=== PATIENT | male | born 1955 | race Caucasian/White ===

== ENCOUNTER → 2018-06-14 08:51 | Outpatient (BNVA) | payer MEDICARE, SELFPAY | PROVIDERS: PCP Family Medicine; Referring Provider Family Medicine; Visit Provider Surgery | DX: L98.9 Disorder of the skin and subcutaneous tissue, unspecified (principal) | CPT/HCPCS: 99213 ==

== ENCOUNTER 2018-06-29 08:45 | Day surgery (SDC) | payer MEDICARE, SELFPAY ==
[2018-06-29 08:50] VITALS: BP 135/68; PULSE 84; RESP 16; TEMP 36.3; O2SAT 94
--- NOTE | 2018-06-29 10:43 | SKI_PTH ---
PATIENT: Anthony Ho LOC: [facility] U#:[id number] AGE/SX: 63/M ROOM: RE06/29/[address]: Jozef Gold DO : 1955 BED: DIS: 06/29/2018 SPEC #: [id number] RECD: 06/29/18 12:48 STATUS: GHULAM REQ #: [id number] ANDREI: 06/29/18 10:[address]: Jozef Gold DEPT: Surgical Specimen RECD BY: Dorothy Lincoln ENTERED: 06/29/18 12:49 SP TYPE: RENETTA BUSTILLO DR: Hillary Taylor MD, DC Tissues: 1 - SKIN BIOPSY(SHAVE/PUNCH) Procedures: SKIN LEVEL 4 Comments: [id number]
[2018-06-29] MEDS: Bupivacaine 0.5% Pres-Free 30 ML VIAL IJ (10:48)
--- NOTE | 2018-06-29 11:18 | PDOC.DSDIS_ITS ---
Discharge Plan Disposition Patient Disposition: HOME Condition: Good Discharge Details Reason For Visit: EXCISION LESION Attending Provider: Jozef Gold Primary Care Provider: Hillary Taylor Home Meds and New Rx's Prescriptions: Continue cyanocobalamin (vitamin B-12) [Vitamin B-12] 1,000 MCG tablet 2.5 tab PO DAILY RF: 0 ascorbic acid (vitamin C) [Vitamin C] 500 MG tablet 2 tab PO DAILY RF: 0 cholecalciferol (vitamin D3) 5,000 UNIT capsule 5,000 unit PO DAILY RF: 0 aspirin [Aspir-81] 81 MG tablet,delayed release (DR/EC) 81 mg PO DAILY Qty: 1 RF: 0 vitamin B comp with C no.4 [Super B Complex + C] 150 MG tablet 150 mg PO DAILY Qty: 1 RF: 0 ublgnxvw-gzr-SE-lycopen-lutein [Centrum Silver Men] 1 EACH tablet 1 ea PO DAILY Qty: 1 RF: 0 baclofen 10 MG tablet 5 - 10 mg PO TID PRN for spasm Qty: 21 RF: 0 venlafaxine 75 MG capsule,extended release 24hr 75 mg PO DAILY Qty: 90 RF: 12 Discharge Instructions Instructions: Care For Your Stitches (DC) Referrals: Jozef Gold DO [ [facility] STAFF PHYSICIAN] - 07/07/18 9:15 am (Follow up for removal of stitches after excision of neoplasm of the nose) Activity:: Activity as Tolerated Diet:: As Tolerated Discharge Orders Discharge Orders: Discharge Order (Routine); Ordered 06/29/18 Ordered By: Jozef Gold DS: Diagnosis Discharge Diagnosis (1) Neoplasm of uncertain behavior of skin of face: Start date: 06/29/18 Start time: 11:17 Status: Acute Asessment and Plan: Recommended removal of neoplasm under local
--- NOTE | 2018-06-29 14:31 | ROE_ITS ---
Date of service: 06/29/18 Time of Service: 10:30 Operative Note DATE OF PROCEDURE: 06/29/18 POST-OP DIAGNOSIS: same PROCEDURE: Excision neoplasm of the nose SURGEON: Jozef Gold ANESTHESIA: local (1% lidocaine and 0.5% Marcaine plain) ESTIMATED BLOOD LOSS: 5 PATHOLOGY: other (Neoplasm of the nose single tail left, double tail inferior) COMPLICATIONS: None Patient was transported to: same day Patient's condition: stable Indications: 63 y/o male presents today for evaluation of a nasal skin lesion, that has been present for ~1.5 months that has not changed in that time frame. -Discussed the procedure of having the lesion excised in the OR secondary to the location and risk of bleeding due to the face being highly vascular. Discussed potential complications to include bleeding and sedation/medication risks. Recommended the patient has a ride to/from his appointment. Questions were answered to patient's satisfaction. No guarantees were implied or given. Findings: Neoplasm of the nose removed with surgical ellipse measuring 1.2 cm x 0.4 cm Procedure Description: The patient was brought to the operating room, and positioned supine. An appropriate timeout was taken reviewing the patient's identification, allergies , medications, site, and equipment. His nose was then prepped with Betadine, and the nose was draped in standard sterile fashion. An ellipse was made around the neoplasm on the nose, this measured 1.2 cm in the long axis and 0.4 cm in the short axis. Local was infiltrated in and around the lesion, encompassing the entire ellipse. A 15 blade scalpel was then used to excise the ellipse down to the subcutaneous tissue. The base was then sharply divided. Hemostasis obtained with cautery. The resulting defect was then closed using 4-0 Prolene suture with simple interrupted stitches. The specimen was marked with single tail silk stitch marking the left, and double tail silk stitch marking inferior margin. There were no complications during the case, and the patient tolerated the procedure well. He was returned to the day surgery recovery area in good condition. All counts reported as correct x2.
== END 2018-06-29 11:30 | disposition home or self-care (01) ==
PROVIDERS: PCP Family Medicine; Visit Provider Surgery
PROC: 0HB1XZZ Excision of Face Skin, External Approach (ICD-10-PCS; CPT 11642; principal; 2018-06-29 10:30)
DX: C44.311 Basal cell carcinoma of skin of nose (principal)
CPT/HCPCS: 11642; 88305

== ENCOUNTER → 2018-07-07 09:00 | Outpatient (BNVA) | payer MEDICARE, SELFPAY | PROVIDERS: PCP Family Medicine; Referring Provider Family Medicine; Visit Provider Surgery | DX: Z48.89 Encounter for other specified surgical aftercare (principal); C44.91 Basal cell carcinoma of skin, unspecified; I10 Essential (primary) hypertension; E11.9 Type 2 diabetes mellitus without complications ==

== ENCOUNTER → 2018-08-02 08:47 | Outpatient (BNVA) | payer MEDICARE, SELFPAY | PROVIDERS: PCP Family Medicine; Referring Provider Family Medicine; Visit Provider Surgery | DX: C44.311 Basal cell carcinoma of skin of nose (principal); E11.9 Type 2 diabetes mellitus without complications; I10 Essential (primary) hypertension | CPT/HCPCS: 99213 ==

== ENCOUNTER 2018-08-29 09:01 | Emergency (ER) | payer MEDICARE, SELFPAY ==
[2018-08-29 09:06] VITALS: BP 134/71; PULSE 71; RESP 16; TEMP 36.4; O2SAT 94
--- NOTE | 2018-08-29 09:20 | W.ED.GENAD ---
Discharge Plan Disposition Patient Disposition: HOME Condition: Good Discharge Details Chief Complaint: Cellulitis Clinical Impression: Chronic stasis dermatitis, Cellulitis Primary Care Provider: Hillary Taylor ED Provider: David Velazquez Home Meds and New Rx's Prescriptions: New cephalexin [Keflex] 500 mg capsule 500 mg PO QID Qty: 40 RF: 0 No Action cyanocobalamin (vitamin B-12) [Vitamin B-12] 1,000 MCG tablet 2.5 tab PO DAILY RF: 0 ascorbic acid (vitamin C) [Vitamin C] 500 MG tablet 2 tab PO DAILY RF: 0 cholecalciferol (vitamin D3) 5,000 UNIT capsule 5,000 unit PO DAILY RF: 0 aspirin [Aspir-81] 81 MG tablet,delayed release (DR/EC) 81 mg PO DAILY Qty: 1 RF: 0 vitamin B comp with C no.4 [Super B Complex + C] 150 MG tablet 150 mg PO DAILY Qty: 1 RF: 0 tjloacuo-rkz-JP-lycopen-lutein [Centrum Silver Men] 1 EACH tablet 1 ea PO DAILY Qty: 1 RF: 0 venlafaxine 75 MG capsule,extended release 24hr 75 mg PO DAILY Qty: 90 RF: 12 Discharge Instructions Instructions: Cellulitis (ED), Stasis Dermatitis (ED) Referrals: Hillary Taylor MD, [place] [Primary Care Provider] - 1 week Discharge Data Discharge Date/Time-TO BE ENTERED AT DEPARTURE: 08/29/18 09:28 Medical Decision Making We discussed allergy to Amoxicillin and potential with Keflex but he did have Keflex in 2014 with no adverse reaction. I did mention to him about the fungal appearance and would like him to evaluated by his pcp within a week. Also to be discussed potential benefits and need for NATTY stockings. He plans to purchase OTC NATTY stockings, my only concern with that is his lower legs, calf is large and he could have a tourniquet affect. I prescribed Keflex. He agreed with POC. HPI General Mode of arrival: ambulatory. Date/Time Provider Initiated Documentation: 08/29/18 09:08. Limitations to Documentation: no limitations. Information obtained by: patient. History of Present Illness 63 year old M presents to the emergency department with the chief complaint of leg infection, HPI Narrative: 63 y/o male here with c/o leg infection. He is a diabetic with chronic history of stasis ulcers. over the last few days he has noticed increased redness traveling up his right leg. He does not wear NATTY stocking or any sort of compression stockings. He denies any pain per se' but the area is sore and itches. He itches all over and he thinks it is from exposure to ever green tree. Denies any fever , chills, or drainage. He was treated with Keflex for stasis ulcer in 2014 out of this ED. His pcp follows his routine care of the venous insufficiency. Related Data Home Medications Medication Instructions Recorded Confirmed cyanocobalamin (vitamin B-12) 2.5 tab PO DAILY 10/16/14 08/29/18 [Vitamin B-12] ascorbic acid (vitamin C) [Vitamin 2 tab PO DAILY 12/17/15 08/29/18 C] cholecalciferol (vitamin D3) 5,000 unit PO DAILY 01/19/17 08/29/18 aspirin [Aspir-81] 81 mg PO DAILY #1 tab-cap 04/20/17 08/29/18 yyoxzwbg-vel-YD-lycopen-lutein 1 ea PO DAILY #1 04/20/17 08/29/18 [Centrum Silver Men] vitamin B comp with C no.4 [Super 150 mg PO DAILY #1 04/20/17 08/29/18 B Complex + C] venlafaxine 75 mg PO DAILY #90 tab-cap 01/25/18 08/29/18 cephalexin [Keflex] 500 mg PO QID #40 cap 08/29/18 Previous Rx's Medication Instructions Recorded venlafaxine 75 mg PO DAILY #90 tab-cap 01/25/18 cephalexin [Keflex] 500 mg PO QID #40 cap 08/29/18 Allergies Allergy/AdvReac Type Severity Reaction Status Date / Time amoxicillin Allergy Intermediate rash Verified 08/29/18 09:18 General Stated Complaint: Cellulitis LUANN: 3 Review of Systems Cardiovascular Reports system reviewed and no additional complaints, except as docu Respiratory Reports system reviewed and no additional complaints, except as docu Musculoskeletal Comments: redness and discomfort to right lower leg Integumentary/Breasts Reports erythema (right lower leg. ) PFSH Basal cell carcinoma of nose (Acute) Anxiety Cystic disease of kidney DVT (deep venous thrombosis) Depressive disorder Diabetes mellitus Essential hypertension Glaucoma Hyperlipidemia Family History Mother Diabetes Kidney disease Neoplasm Father Neoplasm Sister Heart disease Kidney disease Neoplasm Brother Diabetes Heart disease Grandfather Essential hypertension Heart disease Grandfather Neoplasm Grandmother Depression Heart disease Grandmother Heart disease H/O local excision of skin lesion (Acute 06/29/18) Colonoscopy - IV Sedation (04/22/17) polypectomy (~2002) Family History Mother Diabetes Kidney disease Neoplasm Father Neoplasm Sister Heart disease Kidney disease Neoplasm Brother Diabetes Heart disease Grandfather Essential hypertension Heart disease Grandfather Neoplasm Grandmother Depression Heart disease Grandmother Heart disease Medical History Basal cell carcinoma of nose (Acute) Anxiety Cystic disease of kidney DVT (deep venous thrombosis) Depressive disorder Diabetes mellitus Essential hypertension Glaucoma Hyperlipidemia Social History Smoking/Tobacco Use Status: Former Tobacco Use alcohol intake: current alcohol intake frequency: holidays/special occasions only substance use type: does not use Surgical History H/O local excision of skin lesion (Acute 06/29/18) Colonoscopy - IV Sedation (04/22/17) polypectomy (~2002) Social History Smoking/Tobacco Use Status: Former Tobacco Use alcohol intake: current alcohol intake frequency: holidays/special occasions only substance use type: does not use Exam Const General: cooperative, comfortable and no acute distress Nutritional Appearance: overweight Orientation: alert, awake and oriented x3 Skin General skin exam: turgor decreased (bilateral lower extremities with chronic stasis dermatitis. ) Neuro General: alert, awake, oriented x3 and moves all extremities Extrem General: normal to inspection, full ROM, normal capillary refill, no calf tenderness and normal gait Right lower extremity: full ROM, normal capillary refill and lower leg Details: erythema Location: of the proximal lower leg (redness stops just below the knee. Stasis dermatitis with no break in the skin. The redness is not warm and is not angry red typical in cellulits. Redness is dull making me question fungal. The skin is taught. Dorsalis and posterior tibial pulses strong and heard with doppler. ) Location: medially, laterally and anteriorly, of the mid lower leg and of the distal lower leg Left lower extremity: full ROM, normal capillary refill and lower leg (stasis dermatitis, skin is taught with no redness. ) Course Vital Signs Temperature 36.4 C L 08/29/18 09:06 Pulse 71 08/29/18 09:06 Respiratory Rate 16 12/09/18 09:06 Blood Pressure 134/71 08/29/18 09:06 Pulse Oximetry 94 L 08/29/18 09:06 Temperature 36.4 C L 08/29/18 09:06 Temperature Source Skin 08/29/18 09:06 Pulse 71 08/29/18 09:06 Respiratory Rate 16 08/29/18 09:06 Respiratory Effort 08/29/18 09:09 Blood Pressure 134/71 08/29/18 09:06 Pulse Oximetry 94 L 08/29/18 09:06 Pain Level 1 08/29/18 09:06
--- NOTE | 2018-08-29 09:32 | ED.GENADUL_ITS ---
Discharge Plan Disposition Patient Disposition: HOME Condition: Good Discharge Details Chief Complaint: Cellulitis Clinical Impression: Chronic stasis dermatitis, Cellulitis Primary Care Provider: Hillary Taylor ED Provider: David Velazquez Home Meds and New Rx's Prescriptions: New cephalexin [Keflex] 500 mg capsule 500 mg PO QID Qty: 40 RF: 0 No Action cyanocobalamin (vitamin B-12) [Vitamin B-12] 1,000 MCG tablet 2.5 tab PO DAILY RF: 0 ascorbic acid (vitamin C) [Vitamin C] 500 MG tablet 2 tab PO DAILY RF: 0 cholecalciferol (vitamin D3) 5,000 UNIT capsule 5,000 unit PO DAILY RF: 0 aspirin [Aspir-81] 81 MG tablet,delayed release (DR/EC) 81 mg PO DAILY Qty: 1 RF: 0 vitamin B comp with C no.4 [Super B Complex + C] 150 MG tablet 150 mg PO DAILY Qty: 1 RF: 0 ocxcwmip-bbr-VP-lycopen-lutein [Centrum Silver Men] 1 EACH tablet 1 ea PO DAILY Qty: 1 RF: 0 venlafaxine 75 MG capsule,extended release 24hr 75 mg PO DAILY Qty: 90 RF: 12 Discharge Instructions Instructions: Cellulitis (ED), Stasis Dermatitis (ED) Referrals: Hillary Taylor MD, [place] [Primary Care Provider] - 1 week Discharge Data Discharge Date/Time-TO BE ENTERED AT DEPARTURE: 08/29/18 09:28 Medical Decision Making We discussed allergy to Amoxicillin and potential with Keflex but he did have Keflex in 2014 with no adverse reaction. I did mention to him about the fungal appearance and would like him to evaluated by his pcp within a week. Also to be discussed potential benefits and need for NATTY stockings. He plans to purchase OTC NATTY stockings, my only concern with that is his lower legs, calf is large and he could have a tourniquet affect. I prescribed Keflex. He agreed with POC. HPI General Mode of arrival: ambulatory . Date/Time Provider Initiated Documentation: 08/29/18 09:08 . Limitations to Documentation: no limitations . Information obtained by: patient . History of Present Illness 63 year old M presents to the emergency department with the chief complaint of leg infection, HPI Narrative: 63 y/o male here with c/o leg infection. He is a diabetic with chronic history of stasis ulcers. over the last few days he has noticed increased redness traveling up his right leg. He does not wear NATTY stocking or any sort of compression stockings. He denies any pain per se' but the area is sore and itches. He itches all over and he thinks it is from exposure to ever green tree. Denies any fever , chills, or drainage. He was treated with Keflex for stasis ulcer in 2014 out of this ED. His pcp follows his routine care of the venous insufficiency. Related Data Home Medications Medication Instructions Recorded Confirmed cyanocobalamin (vitamin B-12) 2.5 tab PO DAILY 10/16/14 08/29/18 [Vitamin B-12] ascorbic acid (vitamin C) [Vitamin 2 tab PO DAILY 12/17/15 08/29/18 C] cholecalciferol (vitamin D3) 5,000 unit PO DAILY 01/19/17 08/29/18 aspirin [Aspir-81] 81 mg PO DAILY #1 tab-cap 04/20/17 08/29/18 qpbavkve-icl-HW-lycopen-lutein 1 ea PO DAILY #1 04/20/17 08/29/18 [Centrum Silver Men] vitamin B comp with C no.4 [Super 150 mg PO DAILY #1 04/20/17 08/29/18 B Complex + C] venlafaxine 75 mg PO DAILY #90 tab-cap 01/25/18 08/29/18 cephalexin [Keflex] 500 mg PO QID #40 cap 08/29/18 Previous Rx's Medication Instructions Recorded venlafaxine 75 mg PO DAILY #90 tab-cap 01/25/18 cephalexin [Keflex] 500 mg PO QID #40 cap 08/29/18 Allergies Allergy/AdvReac Type Severity Reaction Status Date / Time amoxicillin Allergy Intermediate rash Verified 08/29/18 09:18 General Stated Complaint: Cellulitis LUANN: 3 Review of Systems Cardiovascular Reports system reviewed and no additional complaints, except as docu Respiratory Reports system reviewed and no additional complaints, except as docu Musculoskeletal Comments: redness and discomfort to right lower leg Integumentary/Breasts Reports erythema (right lower leg. ) PFSH Basal cell carcinoma of nose (Acute) Anxiety Cystic disease of kidney DVT (deep venous thrombosis) Depressive disorder Diabetes mellitus Essential hypertension Glaucoma Hyperlipidemia Family History Mother Diabetes Kidney disease Neoplasm Father Neoplasm Sister Heart disease Kidney disease Neoplasm Brother Diabetes Heart disease Grandfather Essential hypertension Heart disease Grandfather Neoplasm Grandmother Depression Heart disease Grandmother Heart disease H/O local excision of skin lesion (Acute 06/29/18) Colonoscopy - IV Sedation (04/22/17) polypectomy (~2002) Family History Mother Diabetes Kidney disease Neoplasm Father Neoplasm Sister Heart disease Kidney disease Neoplasm Brother Diabetes Heart disease Grandfather Essential hypertension Heart disease Grandfather Neoplasm Grandmother Depression Heart disease Grandmother Heart disease Medical History Basal cell carcinoma of nose (Acute) Anxiety Cystic disease of kidney DVT (deep venous thrombosis) Depressive disorder Diabetes mellitus Essential hypertension Glaucoma Hyperlipidemia Social History Smoking/Tobacco Use Status: Former Tobacco Use alcohol intake: current alcohol intake frequency: holidays/special occasions only substance use type: does not use Surgical History H/O local excision of skin lesion (Acute 06/29/18) Colonoscopy - IV Sedation (04/22/17) polypectomy (~2002) Social History Smoking/Tobacco Use Status: Former Tobacco Use alcohol intake: current alcohol intake frequency: holidays/special occasions only substance use type: does not use Exam Const General: cooperative, comfortable and no acute distress Nutritional Appearance: overweight Orientation: alert, awake and oriented x3 Skin General skin exam: turgor decreased (bilateral lower extremities with chronic stasis dermatitis. ) Neuro General: alert, awake, oriented x3 and moves all extremities Extrem General: normal to inspection, full ROM, normal capillary refill, no calf tenderness and normal gait Right lower extremity: full ROM, normal capillary refill and lower leg Details: erythema Location: of the proximal lower leg (redness stops just below the knee. Stasis dermatitis with no break in the skin. The redness is not warm and is not angry red typical in cellulits. Redness is dull making me question fungal. The skin is taught. Dorsalis and posterior tibial pulses strong and heard with doppler. ) Location: medially, laterally and anteriorly, of the mid lower leg and of the distal lower leg Left lower extremity: full ROM, normal capillary refill and lower leg (stasis dermatitis, skin is taught with no redness. ) Course Vital Signs Temperature 36.4 C L 08/29/18 09:06 Pulse 71 08/29/18 09:06 Respiratory Rate 16 12/09/18 09:06 Blood Pressure 134/71 08/29/18 09:06 Pulse Oximetry 94 L 08/29/18 09:06 Temperature 36.4 C L 08/29/18 09:06 Temperature Source Skin 08/29/18 09:06 Pulse 71 08/29/18 09:06 Respiratory Rate 16 08/29/18 09:06 Respiratory Effort 08/29/18 09:09 Blood Pressure 134/71 08/29/18 09:06 Pulse Oximetry 94 L 08/29/18 09:06 Pain Level 1 08/29/18 09:06
== END 2018-08-29 09:28 | disposition home or self-care (01) ==
LOC: ER 09:30
PROVIDERS: Emergency Provider Nurse Practitioner Family; PCP Family Medicine
DX: L03.115 Cellulitis of right lower limb (principal); L03.116 Cellulitis of left lower limb; E11.622 Type 2 diabetes mellitus with other skin ulcer; I10 Essential (primary) hypertension
CPT/HCPCS: 99283

== ENCOUNTER 2018-09-02 11:48 | Day surgery (SDC) | payer MEDICARE, SELFPAY ==
[2018-09-02 12:15] VITALS: BP 137/77; PULSE 87; RESP 16; TEMP 37.9; O2SAT 92
--- NOTE | 2018-09-02 13:32 | SKI_PTH ---
PATIENT: Anthony Ho LOC: [facility] U#:[id number] AGE/SX: 63/M ROOM: RE09/02/[address]: Jozef Gold DO : 1955 BED: DIS: 09/02/2018 SPEC #: [id number] RECD: 09/02/18 18:11 STATUS: GHULAM REQ #: [id number] ANDREI: 09/02/18 13:[address]: Jozef Gold DEPT: Surgical Specimen RECD BY: Dorothy Lincoln ENTERED: 09/02/18 18:12 SP TYPE: RENETTA BUSTILLO DR: Hillary Taylor MD, DC Tissues: 1 - SKIN BIOPSY(SHAVE/PUNCH) 2 - FROZEN SECTION EXAM 3 - FROZEN SECTION- EXTRA SPECIMEN Procedures: FROZEN SECTION EXTRA SKIN LEVEL 4 FROZEN SECTION EXAM Comments: [id number]
[2018-09-02] MEDS: Lidocaine 1% Pres-Free 5 ML VIAL (13:45)
[2018-09-02] MEDS: Bacitracin 30 GM TUBE (14:19)
--- NOTE | 2018-09-02 16:57 | W.PM.OP ---
Date of service: 09/02/18 Time of Service: 13:30 Operative Note DATE OF PROCEDURE: 09/02/18 PRE-OP DIAGNOSIS: Basal cell carcinoma of the nose POST-OP DIAGNOSIS: same PROCEDURE: Excision positive margins from basal cell carcinoma of the nose SURGEON: Jozef Gold ANESTHESIA: local (1% lidocaine) ESTIMATED BLOOD LOSS: 1 PATHOLOGY: other (Scar excision) COMPLICATIONS: None Patient was transported to: same day Patient's condition: stable Indications: 63-year-old male who had a lesion excised from his nose which was determined to be basal cell carcinoma nodular type. The margins at the time of the excision were shown to be positive. It was recommended he return for excision of positive margins with frozen section for confirmation. The procedure was reviewed with him, and the risks discussed. All his questions were answered to his satisfaction. Consent was obtained to proceed with surgical excision. Findings: Prior pathological review had shown positive margins on the left margin. An elliptical incision was made with the medial portion involving the center of the prior scar and extending laterally. Ellipse measurements were 1.2 cm x 0.4 cm. Review of frozen section showed no evidence of residual carcinoma. Procedure Description: The patient was brought to the operating room positioned supine, and all bony prominences were padded. He was flexed to 30 degrees at the torso. An appropriate timeout was taken reviewing the patient's identification, allergies, medications, site, and procedure. The nose was prepped with Betadine and block draped in standard sterile fashion. I reviewed his prior pathology report which showed a positive margin on the left lateral margin. I created an anesthetic field by infiltrating local over the prior scar and laterally to the left. I proceeded to make an elliptical incision measuring 1.2 cm x 0.4 cm with a medial apex starting at the center of the prior incision scar. The short axis in the past the left lateral margin of the prior surgical scar. The incision was carried down through the subcutaneous tissue and the base was sharply divided hemostasis was obtained with cautery and pressure. I closed the wound with interrupted sutures of 2-0 Prolene. The specimen was marked with silk suture with a single tail stitch marking the lateral and the superior margin marked by a double tail stitch. Subsequent frozen section examination demonstrated no residual carcinoma. I inspected the wound for adequate closure of the 2 stitches I had placed brought good approximation to the wound. There is no further bleeding, and the wound was dressed with bacitracin. The patient was brought to day surgery recovery area in good condition. All counts reported as correct x2.
--- NOTE | 2018-09-02 17:11 | W.PM.DSUDISC ---
Discharge Plan Disposition Patient Disposition: HOME Condition: Good Discharge Details Reason For Visit: NEOPLASM OF THE SKIN OF UNCERTAIN BEHAVIOR Attending Provider: Jozef Gold Primary Care Provider: Hillary Taylor Home Meds and New Rx's Prescriptions: No Action cyanocobalamin (vitamin B-12) [Vitamin B-12] 1,000 MCG tablet 2.5 tab PO DAILY RF: 0 ascorbic acid (vitamin C) [Vitamin C] 500 MG tablet 2 tab PO DAILY RF: 0 cholecalciferol (vitamin D3) 5,000 UNIT capsule 5,000 unit PO DAILY RF: 0 aspirin [Aspir-81] 81 MG tablet,delayed release (DR/EC) 81 mg PO DAILY Qty: 1 RF: 0 Super B Complex + C 150 MG tablet 150 mg PO DAILY Qty: 1 RF: 0 Centrum Silver Men 1 EACH tablet 1 ea PO DAILY Qty: 1 RF: 0 venlafaxine 75 MG capsule,extended release 24hr 75 mg PO DAILY Qty: 90 RF: 12 cephalexin [Keflex] 500 mg capsule 500 mg PO QID Qty: 40 RF: 0 Discharge Instructions Instructions: Care For Your Stitches (DC), Skin Cancer Prevention (DC) Additional Instructions: Apply bacitracin to wound daily Stand Alone Forms: Umer Garladn (DSU) Referrals: Radha Brady PA [[employer]STRU[employer] DESIGN MANAGER] - 09/06/18 11:45 am (Follow up for suture removal) Activity:: Activity as Tolerated Remove Dressings/Wound Care:: Do Not Remove Shower/Bathe:: 24 hours Diet:: As Tolerated Discharge Orders Discharge Orders: Discharge Order (Routine); Ordered 09/02/18 Ordered By: Jozef Gold Discharge Data Discharge Date/Time-TO BE ENTERED AT DEPARTURE: 09/02/18 14:52 DS: Diagnosis Discharge Diagnosis (1) Basal cell carcinoma of nose: Status: Acute Asessment and Plan: Excision of positive margins with frozen section confirmation Operative Note DATE OF PROCEDURE: 09/02/18 PRE-OP DIAGNOSIS: Basal cell carcinoma of the nose POST-OP DIAGNOSIS: same PROCEDURE: Excision positive margins from basal cell carcinoma of the nose SURGEON: Jozef Gold ANESTHESIA: local (1% lidocaine) ESTIMATED BLOOD LOSS: 1 PATHOLOGY: other (Scar excision) COMPLICATIONS: None Patient was transported to: same day Patient's condition: stable Indications: 63-year-old male who had a lesion excised from his nose which was determined to be basal cell carcinoma nodular type. The margins at the time of the excision were shown to be positive. It was recommended he return for excision of positive margins with frozen section for confirmation. The procedure was reviewed with him, and the risks discussed. All his questions were answered to his satisfaction. Consent was obtained to proceed with surgical excision. Findings: Prior pathological review had shown positive margins on the left margin. An elliptical incision was made with the medial portion involving the center of the prior scar and extending laterally. Ellipse measurements were 1.2 cm x 0.4 cm. Review of frozen section showed no evidence of residual carcinoma. Procedure Description: The patient was brought to the operating room positioned supine, and all bony prominences were padded. He was flexed to 30 degrees at the torso. An appropriate timeout was taken reviewing the patient's identification, allergies, medications, site, and procedure. The nose was prepped with Betadine and block draped in standard sterile fashion. I reviewed his prior pathology report which showed a positive margin on the left lateral margin. I created an anesthetic field by infiltrating local over the prior scar and laterally to the left. I proceeded to make an elliptical incision measuring 1.2 cm x 0.4 cm with a medial apex starting at the center of the prior incision scar. The short axis in the past the left lateral margin of the prior surgical scar. The incision was carried down through the subcutaneous tissue and the base was sharply divided hemostasis was obtained with cautery and pressure. I closed the wound with interrupted sutures of 2-0 Prolene. The specimen was marked with silk suture with a single tail stitch marking the lateral and the superior margin marked by a double tail stitch. Subsequent frozen section examination demonstrated no residual carcinoma. I inspected the wound for adequate closure of the 2 stitches I had placed brought good approximation to the wound. There is no further bleeding, and the wound was dressed with bacitracin. The patient was brought to day surgery recovery area in good condition. All counts reported as correct x2.
== END 2018-09-02 14:52 | disposition home or self-care (01) ==
PROVIDERS: PCP Family Medicine; Visit Provider Surgery
PROC: 0HB1XZZ Excision of Face Skin, External Approach (ICD-10-PCS; CPT 11642; principal; 2018-09-02 13:00)
DX: C44.311 Basal cell carcinoma of skin of nose (principal)
CPT/HCPCS: 11642; 88305; 88331; 88332

== ENCOUNTER 2018-10-23 09:35 | Emergency (ER) | payer MEDICARE, SELFPAY ==
--- NOTE | 2018-10-23 09:53 | NUR.NOTE ---
at 0600 pt noticed dark red blood in his urine as well as pain on urination 01/28 pt states that he has a constant feeling of needing to pee however has not urinated since 0600 Nursing Note:
[2018-10-23 09:54] VITALS: BP 132/67; PULSE 71; RESP 15; TEMP 37; O2SAT 96
[2018-10-23 10:37] LABS: Bilirubin Negative (Negative); Blood Moderate (Negative); Clarity Cloudy; Glucose Negative (Negative); Ketones Negative (Negative); Leukocyte Esterase Negative (Negative); Nitrite Negative (Negative); Urobilinogen 0.2 EU/dL (Up TO 0.2)
[2018-10-23 10:48] LABS: C & S Indicated? Yes
--- NOTE | 2018-10-23 10:58 | W.ED.GENAD ---
Discharge Plan Disposition Patient Disposition: HOME Condition: Stable Discharge Details Chief Complaint: Urinary Clinical Impression: Hematuria Primary Care Provider: Hillary Taylor ED Provider: Dena Thomas Home Meds and New Rx's Prescriptions: New sulfamethoxazole-trimethoprim [Bactrim DS] 800-160 mg tablet 1 tab PO DAILY Qty: 5 RF: 0 Continued cyanocobalamin (vitamin B-12) [Vitamin B-12] 1,000 MCG tablet 2.5 tab PO DAILY RF: 0 ascorbic acid (vitamin C) [Vitamin C] 500 MG tablet 2 tab PO DAILY RF: 0 cholecalciferol (vitamin D3) 5,000 UNIT capsule 5,000 unit PO DAILY RF: 0 aspirin [Aspir-81] 81 MG tablet,delayed release (DR/EC) 81 mg PO DAILY Qty: 1 RF: 0 Super B Complex + C 150 MG tablet 150 mg PO DAILY Qty: 1 RF: 0 Centrum Silver Men 1 EACH tablet 1 ea PO DAILY Qty: 1 RF: 0 Discharge Instructions Instructions: Sulfamethoxazole/Trimethoprim (By mouth), Urinary Tract Infection in Men (ED), Hematuria (ED) Additional Instructions: Please return immediately to the emergency department if you develop any new or worsening symptoms or if you become otherwise concerned. It is extremely important that you make an appointment to be seen by a urologist and your primary care doctor as soon as possible. Please call [phone] if you have any difficulty establishing these appointments. Referrals: Rom Esquivel MD [ [facility] STAFF PHYSICIAN] - Hillary Taylor [place], [place] [Primary Care Provider] - Discharge Data Discharge Date/Time-TO BE ENTERED AT DEPARTURE: 10/23/18 12:02 Medical Decision Making Anthony Ho is a 63-year-old man with history of diabetes, DVT in the past not currently on any anticoagulation, hypertension, high cholesterol presenting to the emergency department with hematuria since this morning in setting no trauma or inciting event. On exam patient is very well and nontoxic appearing. Abdominal exam is benign. Patient seen in hallway, exam deferred, patient reports no testicular pain, penile discharge/edema, genital rash. Concern for cystitis versus neoplasm versus bleeding from prostate versus other. Exam/history not consistent with urinary retention, sepsis, significant hemorrhage, other acute emergent life-threatening process. Plan for UA. UA shows hematuria, equivocal for UTI, given urinary frequency, will treat for urinary tract infection. Patient seen in the emergency department during high-volume/high acuity, no rooms available. Patient declines to wait for for general exam. I had a lengthy discussion with the patient regarding home care, return to emergency department precautions, and importance of outpatient follow-up with urology and PCP. Patient placed on care management list for urology follow-up within 48 hours. Patient verbalized understanding the plan and is amenable. Medical Records Medical records reviewed: Yes I reviewed the patient's medical records. Lab Data Lab results reviewed: Yes I reviewed the patient's lab results. 10/23/18 10:17 Urine - Reflex from Ua Urine Culture - Final Klebsiella pneumoniae Gram Positive [place],Mixed Laboratory Tests Range/Units 10/23/18 10:17 Urine Color (Yellow) Red Urine Clarity Cloudy Urine pH (5-8) 6.0 Ur Specific [place] (1.005-1.025) 1.020 Urine Protein (Negative) mg/dL >=300 H Urine Ketones (Negative) mg/dL Negative Urine Blood (Negative) Moderate H Urine Nitrite (Negative) Negative Urine Bilirubin (Negative) Negative Urine Urobilinogen (Up TO 0.2) EU/dL 0.2 Ur Leukocyte Esterase (Negative) Negative Urine RBC (0-2) Urine WBC Not Applicable Ur Epithelial Cells Not Applicable Urine Crystals Not Applicable Urine Bacteria (Negative) HPF Urine Mucus Not Applicable Ur Culture Indicated? Yes Urine Glucose (Negative) mg/dL Negative HPI General Mode of arrival: ambulatory. Date/Time Provider Initiated Documentation: 10/23/18 10:58. Limitations to Documentation: no limitations. Information obtained by: patient, RN notes reviewed and old records reviewed. HPI Narrative: Anthony Ho is a 63-year-old man with history of diabetes, hypertension, high cholesterol emergency department with hematuria. Patient reports that he woke up this morning and noticed that his urine was bloody. He has had a sensation that he needs to urinate frequently today but has not had dysuria. Has not passed any clots. Does not have any sensation of urinary retention or difficulty urinating. Patient reports that he has never had hematuria in the past. He is having no pain and no other symptoms. He feels very well and otherwise in his usual state of health. No trauma. Has been eating and drinking as usual. Related Data Home Medications Medication Instructions Recorded Confirmed cyanocobalamin (vitamin B-12) 2.5 tab PO DAILY 10/16/14 10/23/18 [Vitamin B-12] ascorbic acid (vitamin C) [Vitamin 2 tab PO DAILY 12/17/15 10/23/18 C] cholecalciferol (vitamin D3) 5,000 unit PO DAILY 01/19/17 10/23/18 Centrum Silver Men 1 ea PO DAILY #1 04/20/17 10/23/18 Super B Complex + C 150 mg PO DAILY #1 04/20/17 10/23/18 aspirin [Aspir-81] 81 mg PO DAILY #1 tab-cap 04/20/17 10/23/18 sulfamethoxazole-trimethoprim 1 tab PO DAILY #5 tab 10/23/18 [Bactrim DS] Previous Rx's Medication Instructions Recorded sulfamethoxazole-trimethoprim 1 tab PO DAILY #5 tab 10/23/18 [Bactrim DS] Allergies Allergy/AdvReac Type Severity Reaction Status Date / Time amoxicillin Allergy Intermediate rash Verified 10/23/18 09:56 General Stated Complaint: Urinary LUANN: 3 Review of Systems Review of Systems Constitutional: denies fevers Eyes: denies eye pain ENT: denies facial pain, dental pain, sore throat Cardiovascular: denies chest pain Respiratory: denies SOB, cough GI: denies abdominal pain, vomiting, diarrhea : denies flank pain, dysuria, reports hematuria, frequency MSK: denies back pain, neck pain, arthralgias, myalgias Skin: denies rash Neuro: denies headaches, numbness, weakness [facility] Medical History Basal cell carcinoma of nose (Acute) Obesity (Chronic) Hyperlipidemia (Chronic) Glaucoma (Chronic 07/27/08) Essential hypertension (Chronic 06/17/13) Diverticula of colon (Chronic 04/22/17) Diabetes (Chronic) Depressive disorder (Chronic) 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) Anxiety (Chronic 02/27/15) Anemia (Resolved) Anemia (Resolved) Deep vein thrombosis of lower extremity (Resolved) Palpitations (Resolved) Thrombophlebitis of both lower extremities (Resolved) Anxiety Cystic disease of kidney DVT (deep venous thrombosis) Depressive disorder Diabetes mellitus Essential hypertension Glaucoma Hyperlipidemia Surgical History H/O surgical procedure (Resolved) History of excision of lesion (Resolved 09/09/18) Colonoscopy - IV Sedation (04/22/17) polypectomy (~2002) Family History Mother Diabetes Kidney disease Neoplasm Father Neoplasm Sister Heart disease Kidney disease Neoplasm Brother Diabetes Heart disease Grandfather Essential hypertension Heart disease Grandfather Neoplasm Grandmother Depression Heart disease Grandmother Heart disease Social History Smoking/Tobacco Use Status: Former Tobacco Use alcohol intake: current alcohol intake frequency: holidays/special occasions only substance use type: does not use Exam Narrative Exam Narrative: Constitutional: well and [id number], pleasant, conversing normally HENT: head atraumatic, normocephalic normal inspection, mucous membranes moist Eyes: conjunctiva normal, sclera normal, pupils 3mm b/l Neck: no stridor, normal ROM, trachea midline Chest: normal inspection Resp: normal work of breathing, LCTAB Cardio: normal rate, normal rhythm, no murmur appreciated GI: abdomen soft, non-tender, non-distended Back: normal inspection, no rash Skin: warm, dry, normal color, no rash Neuro: alert, not altered, grossly non-focal, normal tone Ext: no edema Psych: normal mood, normal affect, normal behavior Course Vital Signs Temperature 37 C 10/23/18 09:54 Pulse 71 10/23/18 09:54 Respiratory Rate 15 10/23/18 09:54 Blood Pressure 132/67 10/23/18 09:54 Pulse Oximetry 96 10/23/18 09:54 Temperature 37 C 10/23/18 09:54 Temperature Source Skin 10/23/18 09:54 Pulse 71 10/23/18 09:54 Respiratory Rate 15 10/23/18 09:54 Respiratory Effort 10/23/18 09:57 Blood Pressure 132/67 10/23/18 09:54 Blood Pressure Position Sitting 10/23/18 09:54 Pulse Oximetry 96 10/23/18 09:54 Oxygen Delivery Method Room Air 10/23/18 09:54 Oxygen Flow Rate 0 10/23/18 09:54 Pain Level 1 10/23/18 10:27 Lab/Test Results Lab/Test Results: 10/23/18 10:17 Urine - Reflex from Ua Urine Culture - Pending Laboratory Tests Range/Units 10/23/18 10:17 Urine Color (Yellow) Red Urine Clarity Cloudy Urine pH (5-8) 6.0 Ur Specific [place] (1.005-1.025) 1.020 Urine Protein (Negative) mg/dL >=300 H Urine Ketones (Negative) mg/dL Negative Urine Blood (Negative) Moderate H Urine Nitrite (Negative) Negative Urine Bilirubin (Negative) Negative Urine Urobilinogen (Up TO 0.2) EU/dL 0.2 Ur Leukocyte Esterase (Negative) Negative Urine RBC (0-2) Urine WBC Not Applicable Ur Epithelial Cells Not Applicable Urine Crystals Not Applicable Urine Bacteria (Negative) HPF Urine Mucus Not Applicable Ur Culture Indicated? Yes Urine Glucose (Negative) mg/dL Negative
[2018-10-23] MEDS: Sulfameth/Trimeth DS TAB 1 TAB PO (12:02)
--- NOTE | 2018-10-25 09:31 | PDOC.ERCMPRO ---
Care Management Progress Note 10/25-Dr. Nery Thomas requested assistance with a urology f/u as soon as possible for hematuria. [facility] this [facility].
--- NOTE | 2018-10-26 12:49 | ED.GENADUL_ITS ---
Discharge Plan Disposition Patient Disposition: HOME Condition: Stable Discharge Details Chief Complaint: Urinary Clinical Impression: Hematuria Primary Care Provider: Hillary Taylor ED Provider: Dena Thomas Home Meds and New Rx's Prescriptions: New sulfamethoxazole-trimethoprim [Bactrim DS] 800-160 mg tablet 1 tab PO DAILY Qty: 5 RF: 0 Continued cyanocobalamin (vitamin B-12) [Vitamin B-12] 1,000 MCG tablet 2.5 tab PO DAILY RF: 0 ascorbic acid (vitamin C) [Vitamin C] 500 MG tablet 2 tab PO DAILY RF: 0 cholecalciferol (vitamin D3) 5,000 UNIT capsule 5,000 unit PO DAILY RF: 0 aspirin [Aspir-81] 81 MG tablet,delayed release (DR/EC) 81 mg PO DAILY Qty: 1 RF: 0 Super B Complex + C 150 MG tablet 150 mg PO DAILY Qty: 1 RF: 0 Centrum Silver Men 1 EACH tablet 1 ea PO DAILY Qty: 1 RF: 0 Discharge Instructions Instructions: Sulfamethoxazole/Trimethoprim (By mouth), Urinary Tract Infection in Men (ED), Hematuria (ED) Additional Instructions: Please return immediately to the emergency department if you develop any new or worsening symptoms or if you become otherwise concerned. It is extremely important that you make an appointment to be seen by a urologist and your primary care doctor as soon as possible. Please call [phone] if you have any difficulty establishing these appointments. Referrals: Rom Esquivel MD [ [facility] STAFF PHYSICIAN] - Hillary Taylor MD, [place] [Primary Care Provider] - Discharge Data Discharge Date/Time-TO BE ENTERED AT DEPARTURE: 10/23/18 12:02 Medical Decision Making Anthony Ho is a 63-year-old man with history of diabetes, DVT in the past not currently on any anticoagulation, hypertension, high cholesterol presenting to the emergency department with hematuria since this morning in setting no trauma or inciting event. On exam patient is very well and nontoxic appearing. Abdominal exam is benign. Patient seen in hallway, exam deferred, patient reports no testicular pain, penile discharge/edema, genital rash. Concern for cystitis versus neoplasm versus bleeding from prostate versus other. Exam/history not consistent with urinary retention, sepsis, significant hemorrhage, other acute emergent life-threatening process. Plan for UA. UA shows hematuria, equivocal for UTI, given urinary frequency, will treat for urinary tract infection. Patient seen in the emergency department during high- volume/high acuity, no rooms available. Patient declines to wait for for general exam. I had a lengthy discussion with the patient regarding home care, return to emergency department precautions, and importance of outpatient follow-up with urology and PCP. Patient placed on care management list for urology follow-up within 48 hours. Patient verbalized understanding the plan and is amenable. Medical Records Medical records reviewed: Yes I reviewed the patient's medical records. Lab Data Lab results reviewed: Yes I reviewed the patient's lab results. 10/23/18 10:17 Urine - Reflex from Ua Urine Culture - Final Klebsiella pneumoniae Gram Positive [place],Mixed Laboratory Tests Range/Units 10/23/18 10:17 Urine Color (Yellow) Red Urine Clarity Cloudy Urine pH (5-8) 6.0 Ur Specific [place] (1.005-1.025) 1.020 Urine Protein (Negative) mg/dL >=300 H Urine Ketones (Negative) mg/dL Negative Urine Blood (Negative) Moderate H Urine Nitrite (Negative) Negative Urine Bilirubin (Negative) Negative Urine Urobilinogen (Up TO 0.2) EU/dL 0.2 Ur Leukocyte Esterase (Negative) Negative Urine RBC (0-2) Urine WBC Not Applicable Ur Epithelial Cells Not Applicable Urine Crystals Not Applicable Urine Bacteria (Negative) HPF Urine Mucus Not Applicable Ur Culture Indicated? Yes Urine Glucose (Negative) mg/dL Negative HPI General Mode of arrival: ambulatory . Date/Time Provider Initiated Documentation: 10/23/18 10:58 . Limitations to Documentation: no limitations . Information obtained by: patient, RN notes reviewed and old records reviewed . HPI Narrative: Anthony Ho is a 63-year-old man with history of diabetes, hypertension, high cholesterol emergency department with hematuria. Patient reports that he woke up this morning and noticed that his urine was bloody. He has had a sensation that he needs to urinate frequently today but has not had dysuria. Has not passed any clots. Does not have any sensation of urinary retention or difficulty urinating. Patient reports that he has never had hematuria in the past. He is having no pain and no other symptoms. He feels very well and otherwise in his usual state of health. No trauma. Has been eating and drinking as usual. Related Data Home Medications Medication Instructions Recorded Confirmed cyanocobalamin (vitamin B-12) 2.5 tab PO DAILY 10/16/14 10/23/18 [Vitamin B-12] ascorbic acid (vitamin C) [Vitamin 2 tab PO DAILY 12/17/15 10/23/18 C] cholecalciferol (vitamin D3) 5,000 unit PO DAILY 01/19/17 10/23/18 Centrum Silver Men 1 ea PO DAILY #1 04/20/17 10/23/18 Super B Complex + C 150 mg PO DAILY #1 04/20/17 10/23/18 aspirin [Aspir-81] 81 mg PO DAILY #1 tab-cap 04/20/17 10/23/18 sulfamethoxazole-trimethoprim 1 tab PO DAILY #5 tab 10/23/18 [Bactrim DS] Previous Rx's Medication Instructions Recorded sulfamethoxazole-trimethoprim 1 tab PO DAILY #5 tab 10/23/18 [Bactrim DS] Allergies Allergy/AdvReac Type Severity Reaction Status Date / Time amoxicillin Allergy Intermediate rash Verified 10/23/18 09:56 General Stated Complaint: Urinary LUANN: 3 Review of Systems Review of Systems Constitutional: denies fevers Eyes: denies eye pain ENT: denies facial pain, dental pain, sore throat Cardiovascular: denies chest pain Respiratory: denies SOB, cough GI: denies abdominal pain, vomiting, diarrhea : denies flank pain, dysuria, reports hematuria, frequency MSK: denies back pain, neck pain, arthralgias, myalgias Skin: denies rash Neuro: denies headaches, numbness, weakness [facility] Medical History Basal cell carcinoma of nose (Acute) Obesity (Chronic) Hyperlipidemia (Chronic) Glaucoma (Chronic 07/27/08) Essential hypertension (Chronic 06/17/13) Diverticula of colon (Chronic 04/22/17) Diabetes (Chronic) Depressive disorder (Chronic) 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) Anxiety (Chronic 02/27/15) Anemia (Resolved) Anemia (Resolved) Deep vein thrombosis of lower extremity (Resolved) Palpitations (Resolved) Thrombophlebitis of both lower extremities (Resolved) Anxiety Cystic disease of kidney DVT (deep venous thrombosis) Depressive disorder Diabetes mellitus Essential hypertension Glaucoma Hyperlipidemia Surgical History H/O surgical procedure (Resolved) History of excision of lesion (Resolved 09/09/18) Colonoscopy - IV Sedation (04/22/17) polypectomy (~2002) Family History Mother Diabetes Kidney disease Neoplasm Father Neoplasm Sister Heart disease Kidney disease Neoplasm Brother Diabetes Heart disease Grandfather Essential hypertension Heart disease Grandfather Neoplasm Grandmother Depression Heart disease Grandmother Heart disease Social History Smoking/Tobacco Use Status: Former Tobacco Use alcohol intake: current alcohol intake frequency: holidays/special occasions only substance use type: does not use Exam Narrative Exam Narrative: Constitutional: well and [id number], pleasant, conversing normally HENT: head atraumatic, normocephalic normal inspection, mucous membranes moist Eyes: conjunctiva normal, sclera normal, pupils 3mm b/l Neck: no stridor, normal ROM, trachea midline Chest: normal inspection Resp: normal work of breathing, LCTAB Cardio: normal rate, normal rhythm, no murmur appreciated GI: abdomen soft, non-tender, non-distended Back: normal inspection, no rash Skin: warm, dry, normal color, no rash Neuro: alert, not altered, grossly non-focal, normal tone Ext: no edema Psych: normal mood, normal affect, normal behavior Course Vital Signs Temperature 37 C 10/23/18 09:54 Pulse 71 10/23/18 09:54 Respiratory Rate 15 10/23/18 09:54 Blood Pressure 132/67 10/23/18 09:54 Pulse Oximetry 96 10/23/18 09:54 Temperature 37 C 10/23/18 09:54 Temperature Source Skin 10/23/18 09:54 Pulse 71 10/23/18 09:54 Respiratory Rate 15 10/23/18 09:54 Respiratory Effort 10/23/18 09:57 Blood Pressure 132/67 10/23/18 09:54 Blood Pressure Position Sitting 10/23/18 09:54 Pulse Oximetry 96 10/23/18 09:54 Oxygen Delivery Method Room Air 10/23/18 09:54 Oxygen Flow Rate 0 10/23/18 09:54 Pain Level 1 10/23/18 10:27 Lab/Test Results Lab/Test Results: 10/23/18 10:17 Urine - Reflex from Ua Urine Culture - Pending Laboratory Tests Range/Units 10/23/18 10:17 Urine Color (Yellow) Red Urine Clarity Cloudy Urine pH (5-8) 6.0 Ur Specific [place] (1.005-1.025) 1.020 Urine Protein (Negative) mg/dL >=300 H Urine Ketones (Negative) mg/dL Negative Urine Blood (Negative) Moderate H Urine Nitrite (Negative) Negative Urine Bilirubin (Negative) Negative Urine Urobilinogen (Up TO 0.2) EU/dL 0.2 Ur Leukocyte Esterase (Negative) Negative Urine RBC (0-2) Urine WBC Not Applicable Ur Epithelial Cells Not Applicable Urine Crystals Not Applicable Urine Bacteria (Negative) HPF Urine Mucus Not Applicable Ur Culture Indicated? Yes Urine Glucose (Negative) mg/dL Negative
== END 2018-10-23 12:02 | disposition home or self-care (01) ==
PROVIDERS: Emergency Provider Student in an Organized Health Care Education/Training Program; PCP Family Medicine
DX: N39.0 Urinary tract infection, site not specified (principal); R31.9 Hematuria, unspecified; R35.0 Frequency of micturition; E11.9 Type 2 diabetes mellitus without complications; I10 Essential (primary) hypertension
CPT/HCPCS: 87077; 99283; 81003; 81015; 87086; 87186

== ENCOUNTER 2019-02-04 02:38 | Outpatient (CLI) | payer MEDICARE, SELFPAY ==
[2019-02-04 10:55] LABS: ALT 27 U/L (12-78); AST 18 U/L (15-37); Albumin 3.8 g/dL (3.4-5.0); Alkaline Phosphatase 54 U/L (46-116); Anion Gap 9.9 mmol/L (3-11); BUN 19 mg/dL (7-18); Bilirubin, Total 0.2 mg/dL (0.2-1.0); CO2 26.1 mmol/L (21.0-32.0); CREATININE 1.04 mg/dL (0.70-1.30); Chloride 104 mmol/L (98-107); Cholesterol 164 mg/dL (50-200); Glucose 115 mg/dL (70-100); HDL Cholesterol 33 mg/dL (40-60); LDL CHOLESTEROL 100 mg/dL (<100); Potassium 4.2 mmol/L (3.5-5.1); Sodium 140 mmol/L (136-145); Total Protein 7.4 g/dL (6.4-8.2); Triglyceride 288 mg/dL (30-150)
[2019-02-04 10:58] LABS: Hemoglobin A1C 5.8 % (4.5-6.2)
== END 2019-02-04 02:58 ==
PROVIDERS: PCP Family Medicine; Visit Provider Family Medicine
DX: E11.9 Type 2 diabetes mellitus without complications (principal); E78.5 Hyperlipidemia, unspecified; I10 Essential (primary) hypertension
CPT/HCPCS: 36415; 80053; 80061; 83721; 83036

== ENCOUNTER 2019-09-23 08:26 | Emergency (ER) | payer MEDICARE, SELFPAY ==
[2019-09-23 08:31] VITALS: BP 148/70; PULSE 86; RESP 24; TEMP 36.6; O2SAT 97
[2019-09-23 08:47] LABS: Bilirubin Negative (Negative); Blood Negative (Negative); Clarity Clear (Clear); Glucose Negative (Negative); Ketones Negative (Negative); Leukocyte Esterase Negative (Negative); Nitrite Negative (Negative); Specific Gravity 1.015 (1.005-1.025); Urobilinogen 0.2 EU/dL (Up TO 0.2)
--- NOTE | 2019-09-23 09:07 | ED.GENADUL_ITS ---
Discharge Plan Disposition Patient Disposition: HOME Condition: Stable Discharge Details Chief Complaint: FlankPain Clinical Impression: Low back pain Primary Care Provider: Hillary Taylor ED Provider: Dena Thomas Home Meds and New Rx's Prescriptions: Continued cyanocobalamin (vitamin B-12) [Vitamin B-12] 1,000 MCG tablet 2.5 tab PO DAILY RF: 0 ascorbic acid (vitamin C) [Vitamin C] 500 MG tablet 2 tab PO DAILY RF: 0 cholecalciferol (vitamin D3) 5,000 UNIT capsule 5,000 unit PO DAILY RF: 0 aspirin [Aspir-81] 81 MG tablet,delayed release (DR/EC) 81 mg PO DAILY Qty: 1 RF: 0 Centrum Silver Men 1 EACH tablet 1 ea PO DAILY Qty: 1 RF: 0 venlafaxine [Effexor XR] 75 mg capsule,extended release 24hr 75 mg PO DAILY Qty: 90 RF: 4 Discharge Instructions Instructions: Low Back Strain (ED), Lower Back Exercises (ED) Additional Instructions: Please return immediately to the emergency department if you develop any new or worsening symptoms, if your condition does not improve as expected, or if you become otherwise concerned. It is extremely important that you call soon as possible to make an appointment to be seen in follow-up for this visit by your primary care doctor. Referrals: Hillary Taylor MD, [place] [Primary Care Provider] - Medical Decision Making Anthony Ho is a 64-year-old man with history of hyperlipidemia, hypertension, DVT in the past presenting to the emergency department with intermittent right lower back pain radiating into his right thigh, occurs mostly during exercises, no current pain. On exam patient is well and nontoxic appearing. He has a hoarse voice that he reports is chronic and unchanged. Benign cardiopulmonary exam. Benign abdominal exam. No tenderness to palpation of the thoracic or lumbar spine or paraspinals with normal inspection of the back. Motor 5 out of 5 bilateral lower extremities. Sensation intact and symmetric bilateral lower extremities including saddle region. Normal gait. Moving from lying down on exam table to sitting to standing without issue or apparent discomfort. Chronic skin changes bilateral lower legs that patient reports is unchanged. No posterior calf tenderness to palpation, no lower extremity edema. Concern for nonemergent musculoskeletal pain, sciatica. Exam/history is not consistent with acute aortic etiology, kidney stone, cauda equina syndrome, epidural abscess/hematoma, other cord compression, infectious etiology, testicular etiology, other acute emergent process. Plan for screening UA, postvoid residual. UA negative. Postvoid residual 0. I had a lengthy discussion with Patient regarding return to emergency department precautions, home care, and importance of outpatient follow-up. Pt verbalizes understanding of the plan and is amenable. Patient discharged to home with clear plan for outpatient follow-up. All questions were answered. Disposition decision was made weighing the risks and benefits of hospitalization versus outpatient treatment, the risk for further decompensation, and the patient's wishes. Medical Records Medical records reviewed: Yes I reviewed the patient's medical records. Lab Data Lab results reviewed: Yes I reviewed the patient's lab results. Labs: Laboratory Tests Range/Units 09/23/19 08:33 Urine Color (Yellow) Yellow Urine Clarity (Clear) Clear Urine pH (5-8) 7.0 Ur Specific [place] (1.005-1.025) 1.015 Urine Protein (Negative) mg/dL Negative Urine Ketones (Negative) mg/dL Negative Urine Blood (Negative) Negative Urine Nitrite (Negative) Negative Urine Bilirubin (Negative) Negative Urine Urobilinogen (Up TO 0.2) EU/dL 0.2 Ur Leukocyte Esterase (Negative) Negative Urine Glucose (Negative) mg/dL Negative HPI General Mode of arrival: ambulatory . Date/Time Provider Initiated Documentation: 09/23/19 09:05 . Limitations to Documentation: no limitations . Information obtained by: patient, RN notes reviewed and old records reviewed . HPI Narrative: Anthony Ho is a 64-year-old man with a history of hyperlipidemia, venous stasis dermatitis of bilateral lower extremities, DVT in the past (patient reports as 15 years ago) presenting to the emergency department with right lower back pain. Patient reports that he has had intermittent right lower back pain over the past year. Patient reports that he has been trying to exercise more in the past few months. He reports that in the past month or so he has noticed that he has more frequent right lower back pain than previously in the past year, noticing pain during his exercises and also sometimes while lying flat. Pain is sharp, sometimes radiates into right thigh. Nonexertional. Patient reports that he has no current low back pain. He states that this pain has not caused him to change his daily activities at all. Patient reports that he presented to the emergency department today to see if he could continue to do his daily exercises. Patient reports that he notices back pain most well doing sit ups, also while lying flat on a bench using free weights. Patient reports that he has noticed over the past few weeks that he is getting up more at night to urinate, symptoms 2-3 times per night. Patient reports that he has had no changes in urination during the day. He denies any other pain or any current pain, fever, shortness of breath, cough, vomiting, diarrhea, constipation, dysuria, urinary incontinence, urinary hesitancy, testicular pain or swelling, rash, numbness, weakness. Patient reports that he feels very well in his usual state of health. No recent illness. Has been eating and drinking as usual. Related Data Home Medications Medication Instructions Recorded Confirmed cyanocobalamin (vitamin B-12) 2.5 tab PO DAILY 10/16/14 01/31/19 [Vitamin B-12] ascorbic acid (vitamin C) [Vitamin 2 tab PO DAILY 12/17/15 01/31/19 C] cholecalciferol (vitamin D3) 5,000 unit PO DAILY 01/19/17 01/31/19 Centrum Silver Men 1 ea PO DAILY #1 04/20/17 01/31/19 aspirin [Aspir-81] 81 mg PO DAILY #1 tab-cap 04/20/17 01/31/19 venlafaxine 75 mg capsule,extended 75 mg PO DAILY #90 cap 03/23/19 release 24 hr Previous Rx's Medication Instructions Recorded venlafaxine 75 mg capsule,extended 75 mg PO DAILY #90 cap 03/23/19 release 24 hr Allergies Allergy/AdvReac Type Severity Reaction Status Date / Time amoxicillin Allergy Intermediate rash Verified 09/23/19 08:58 General Stated Complaint: FlankPain LUANN: 3 Review of Systems Narrative: Constitutional: denies fevers Eyes: denies eye pain ENT: denies ear pain, dental pain, sore throat Cardiovascular: denies chest pain, edema Respiratory: denies SOB, cough GI: denies abdominal pain, vomiting, diarrhea : denies flank pain, testicular pain, dysuria, reports nighttime urinary frequency MSK: denies neck pain, arthralgias, reports back pain Skin: denies rash Neuro: denies headaches, numbness, weakness [facility] Medical History Anemia (Resolved) 12/17/15 Anemia (Resolved) 07/27/08 Anxiety Anxiety (Chronic 02/27/15) Basal cell carcinoma of nose (Chronic) positive margins 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 to be hoarse Thrombophlebitis of both lower extremities (Resolved) 05/18/13 Tinea corporis (Chronic 09/20/13) Venous stasis dermatitis of both lower extremities (Chronic 01/19/17) Surgical History (Updated 01/31/19 @ 09:20 by Hillary Taylor MD, [place]) Colonoscopy - IV Sedation (04/22/17) H/O local excision of skin lesion (Resolved 06/29/18) Excision of skin lesion of face (nose), Dr Gold, in [place] = basal cell carcinoma, positive margins H/O surgical procedure (Resolved) 09/21/02 History of excision of lesion (Resolved 09/09/18) Dr Gold, nose, re-excision - margins negative polypectomy (~2002) throat Family History Mother Diabetes Kidney disease single kidney Cancer Father Lung cancer Sister Heart disease CHF Kidney disease Cancer Brother Diabetes Heart disease CHF Maternal Grandfather Essential hypertension Heart disease Paternal Grandfather Cancer Maternal Grandmother Depression Heart disease Paternal Grandmother Heart disease Social History Smoking/Tobacco Use Status: Former Tobacco Use Quit Date: 09/21/94 Alcohol Intake: former Drug use: Never Substance use type: does not use Household members: family Communication Needs: None Do you need help understanding health information?: Rarely Pets and animals: No Sexually active: No Do you think of yourself as: straight/heterosexual Current gender identity: decline to answer What is your relationship status?: never How often do you talk on the phone with friends or family?: never How often do you get together with friends or relatives?: never How often do you attend nondenominational or yarsani services?: decline to answer Do you belong to any clubs or organized social groups?: decline to answer Panel score (0-1 are the most socially isolated patients): 0 What type of physical activity do you participate in: weight lifting Duration: 15-30 minutes/day Frequency: 1-2 times per week Joan/Anabaptist: Zoroastrian Special joan needs: No Do you feel safe at home: Yes Do you feel safe in your relationship?: Yes Exam Narrative Exam Narrative: Constitutional: well and [id number], pleasant, conversing normally HENT: head atraumatic/normocephalic/normal inspection, mucous membranes moist Eyes: conjunctiva normal, sclera normal, pupils 3mm b/l Neck: no stridor, normal ROM, trachea midline Chest: normal inspection Resp: normal work of breathing, LCTAB Cardio: normal rate, normal rhythm, no murmur appreciated GI: abdomen soft, non-tender, non-distended Back: normal inspection, no rash Skin: warm, dry, normal color, no rash Neuro: alert, not altered, grossly non-focal, normal tone Ext: no edema Psych: normal mood, normal affect, normal behavior Course Vital Signs Vital signs: Vital Signs Temperature 36.6 C 09/23/19 08:31 Pulse 86 09/23/19 08:31 Respiratory Rate 24 09/23/19 08:31 Blood Pressure 148/70 H 09/23/19 08:31 Pulse Oximetry 97 09/23/19 08:31 Temperature 36.6 C 09/23/19 08:31 Temperature Source Skin 09/23/19 08:31 Pulse 86 09/23/19 08:31 Respiratory Rate 24 09/23/19 08:31 Respiratory Effort 09/23/19 08:56 Blood Pressure 148/70 H 09/23/19 08:31 Blood Pressure Position Sitting 09/23/19 08:31 Pulse Oximetry 97 09/23/19 08:31 Oxygen Delivery Method Room Air 09/23/19 08:31 Oxygen Flow Rate 0 09/23/19 08:31 Pain Level 6 09/23/19 08:31 Lab/Test Results Lab/Test Results: Laboratory Tests Range/Units 09/23/19 08:33 Urine Color (Yellow) Yellow Urine Clarity (Clear) Clear Urine pH (5-8) 7.0 Ur Specific [place] (1.005-1.025) 1.015 Urine Protein (Negative) mg/dL Negative Urine Ketones (Negative) mg/dL Negative Urine Blood (Negative) Negative Urine Nitrite (Negative) Negative Urine Bilirubin (Negative) Negative Urine Urobilinogen (Up TO 0.2) EU/dL 0.2 Ur Leukocyte Esterase (Negative) Negative Urine Glucose (Negative) mg/dL Negative
== END 2019-09-23 09:14 | disposition home or self-care (01) ==
PROVIDERS: Emergency Provider Student in an Organized Health Care Education/Training Program; PCP Family Medicine
DX: M54.5 Low back pain (principal); I10 Essential (primary) hypertension; E11.9 Type 2 diabetes mellitus without complications
CPT/HCPCS: 99282; 81003

== ENCOUNTER 2020-01-09 08:39 | Emergency (ER) | payer MEDICARE, SELFPAY ==
[2020-01-09 08:47] VITALS: BP 130/110; PULSE 81; TEMP 37.1; O2SAT 95
--- NOTE | 2020-01-09 08:55 | W.ED.GENAD ---
Discharge Plan Disposition Patient Disposition: HOME Condition: Stable Discharge Details Chief Complaint: Vascular Clinical Impression: DVT (deep venous thrombosis), Cellulitis Primary Care Provider: Hillary Taylor ED Provider: Dena Thomas Home Meds and New Rx's Prescriptions: New Eliquis 5 mg tablet See Rx Instructions .ROUTE .COMPLEX Qty: 70 RF: 0 doxycycline hyclate 100 mg capsule 100 mg PO BID Qty: 20 RF: 0 Continued cyanocobalamin (vitamin B-12) [Vitamin B-12] 1,000 MCG tablet 2.5 tab PO DAILY RF: 0 ascorbic acid (vitamin C) [Vitamin C] 500 MG tablet 2 tab PO DAILY RF: 0 cholecalciferol (vitamin D3) 5,000 UNIT capsule 5,000 unit PO DAILY RF: 0 aspirin [Aspir-81] 81 MG tablet,delayed release (DR/EC) 81 mg PO DAILY Qty: 1 RF: 0 venlafaxine [Effexor XR] 75 mg capsule,extended release 24hr 75 mg PO DAILY Qty: 90 RF: 4 Discontinued Centrum Silver Men 1 EACH tablet 1 ea PO DAILY Qty: 1 RF: 0 Discharge Instructions Instructions: Doxycycline (By mouth), Apixaban (By mouth), Cellulitis (ED), Deep Vein Thrombosis (ED) Additional Instructions: Please return immediately to the emergency department if you develop any new or worsening symptoms, if your condition does not improve as expected, or if you become otherwise concerned. It is extremely important that you call soon as possible to make an appointment to be seen in follow-up for this visit by your primary care doctor. Referrals: Hillary Taylor MD, [place] [Primary Care Provider] - Medical Decision Making Anthony Ho is a 64-year-old man with a history of hypertension, hyperlipidemia, cystic kidney disease, chronic venous stasis dermatitis bilateral lower extremities, DVT in the past, diabetes not currently being treated with medication who presented to the emergency department with skin changes to his left anterior thigh and knee consistent with prior episodes of cellulitis per his report. On exam patient is well and nontoxic-appearing. He appears comfortable. Full painless flexion extension of left hip and knee. Streaky area of hyperpigmentation left anterior thigh with 1 area of streaking into the left anterior knee. Small area of erythema to the anterior left lower leg just distal to the knee and proximal to patient's chronic venous skin changes that he reports is unchanged. No popliteal tenderness to palpation, no posterior calf tenderness to palpation. Bilateral lower extremities appear symmetric in size, no pitting edema. Concern for cellulitis versus superficial thrombophlebitis versus DVT versus other. Exam/history is not consistent with necrotizing fasciitis, sepsis, compartment syndrome, acute bony pathology, septic arthritis, other systemic acute life-threatening emergency. Plan for screening labs, ultrasound. Ultrasound shows chronic versus acute superficial saphenous thrombus and femoral thrombus. Exam/history is not consistent with pulmonary embolism. Awaiting labs. Plan for anticoagulation with apixaban, doxycycline for cellulitis. Patient requesting discharged home, refuses first dose of meds here, states that he does not want to wait. Will give prescriptions. I had a lengthy discussion with Patient regarding return to emergency department precautions, home care, and importance of outpatient follow-up. Pt verbalizes understanding of the plan and is amenable. Patient discharged to home with clear plan for outpatient follow-up. All questions were answered. Disposition decision was made weighing the risks and benefits of hospitalization versus outpatient treatment, the risk for further decompensation, and the patient's wishes. Medical Records Medical records reviewed: Yes I reviewed the patient's medical records. Imaging Data Radiologic Study: Attestation: I personally reviewed and interpreted this imaging study as follows: Radiologist's impression: EXAM: US LOWER EXTREMITY VENOUS LT CLINICAL HISTORY: pain, skin changes, r/o DVT, h/o BILAT DVT 15 YEARS AGO TECHNIQUE: Ultrasound performed using standard protocol. COMPARISON: BILATERAL EXTREMITIES from 09/07/2012 FINDINGS: Duplex venous ultrasound left lower extremity was performed according to the usual protocol. Note is made of what appears to be old echogenic thrombus in the superficial venous system in branches of greater saphenous vein. No greater saphenous thrombus seen. There is mixed low/high echogenicity thrombus in the mid to distal femoral vein which may represent chronic and/or acute thrombus. No other significant DVT identified from the common femoral vein to the mid calf level. IMPRESSION: DVT in mid to distal femoral vein, this is of uncertain age but is likely to include acute thrombus. Lab Data Lab results reviewed: Yes I reviewed the patient's lab results. Labs: Laboratory Tests Range/Units 01/09/20 01/09/20 01/09/20 10:40 10:40 10:40 WBC (4.4-10.8) k/cumm 5.50 RBC (4.50-6.00) m/cumm 4.26 L Hgb (13.5-17.5) g/dL 13.1 L Hct (40.0-50.0) % 40.1 MCV (80-95) fL 94.1 MCH (27.0-33.0) pg 30.8 MCHC (32.0-36.0) g/dL 32.7 RDW (11.8-14.1) % 13.5 Plt Count (130-400) x1000/uL 235 MPV (8.0-11.0) fL 9.3 Immature Gran % % 0.4 Neutrophils % 62.7 Lymphocytes % 24.5 Monocytes % 9.1 Eosinophils % 3.3 Basophils % 0.0 Absolute Neutrophils (1.2-6.7) k/cumm 3.45 Absolute Lymphocytes (1.2-3.4) k/cumm 1.35 Absolute Monocytes (0.11-0.7) k/cumm 0.50 Absolute Eosinophils (0.0-0.7) k/cumm 0.18 Absolute Basophils (0.0-0.2) k/cumm 0.00 PT (9.3-11.0) sec 10.4 INR (0.9-1.1) 1.0 Sodium (136-145) mmol/L 139 Potassium (3.5-5.1) mmol/L 4.3 Chloride (98-107) mmol/L 103 Carbon Dioxide (21.0-32.0) mmol/L 28.6 Anion Gap (3-11) mmol/L 7.4 BUN (7-18) mg/dL 17 Creatinine (0.70-1.30) mg/dL 1.04 Estimated GFR/1.73 m2 (mL/min/1.73m2) >= 60.00 Glucose (74-106) mg/dL 94 Calcium (8.5-10.1) mg/dL 9.1 Total Bilirubin (0.2-1.0) mg/dL 0.3 AST (15-37) U/L 22 ALT (16-63) U/L 31 Alkaline Phosphatase (46-116) U/L 51 Total Protein (6.4-8.2) g/dL 7.8 Albumin (3.4-5.0) g/dL 3.8 HPI General Mode of arrival: ambulatory. Date/Time Provider Initiated Documentation: 01/09/20 08:42. Limitations to Documentation: no limitations. Information obtained by: patient, RN notes reviewed and old records reviewed. HPI Narrative: Anthony Ho is a 64 y/o man with a history of hypertension, hyperlipidemia, venous stasis dermatitis of bilateral lower extremities, cystic kidney disease, diabetes not currently being treated with medications presenting to the emergency department with leg infection. Patient reports that he has intermittent recurring skin infections of his legs. Patient reports that 1 week ago he noticed mild pain and skin changes in his left anterior thigh consistent with prior infections. Patient reports that over the week pain has not increased, however he notes that skin changes now seem to be overlying his knee as well. Patient denies any other symptoms: No other pain, fever, vomiting, diarrhea, numbness, weakness, cough, shortness of breath. Patient reports that he has been eating and drinking as usual. He reports that he has been going about his daily activities as usual, states that he feels very well in his new state of health other than skin changes and mild pain to the left anterior thigh/knee as above. He denies any recent immobilization. He denies trauma or other inciting factor. He denies alcohol/tobacco/recreational drug use. Related Data Home Medications Medication Instructions Recorded Confirmed cyanocobalamin (vitamin B-12) 2.5 tab PO DAILY 10/16/14 01/09/20 [Vitamin B-12] ascorbic acid (vitamin C) [Vitamin 2 tab PO DAILY 12/17/15 01/09/20 C] cholecalciferol (vitamin D3) 5,000 unit PO DAILY 01/19/17 01/09/20 aspirin [Aspir-81] 81 mg PO DAILY #1 tab-cap 04/20/17 01/09/20 venlafaxine 75 mg capsule,extended 75 mg PO DAILY #90 cap 03/23/19 01/09/20 release 24 hr apixaban [Eliquis] See Rx Instructions .ROUTE 01/09/20 .COMPLEX #70 tab doxycycline hyclate 100 mg PO BID #20 cap 01/09/20 Previous Rx's Medication Instructions Recorded venlafaxine 75 mg capsule,extended 75 mg PO DAILY #90 cap 03/23/19 release 24 hr apixaban [Eliquis] See Rx Instructions .ROUTE 01/09/20 .COMPLEX #70 tab doxycycline hyclate 100 mg PO BID #20 cap 01/09/20 Allergies Allergy/AdvReac Type Severity Reaction Status Date / Time amoxicillin Allergy Intermediate rash Verified 01/09/20 08:53 General Stated Complaint: Vascular LUANN: 3 Review of Systems Narrative: Constitutional: denies fevers Eyes: denies eye pain ENT: denies ear pain, dental pain, sore throat Cardiovascular: denies chest pain, edema Respiratory: denies SOB, cough GI: denies abdominal pain, vomiting, diarrhea : denies flank pain MSK: denies back pain, neck pain, arthralgias, myalgias Skin: Reports painful skin discoloration left anterior thigh/left knee, chronic skin changes bilateral lower legs that is unchanged, denies other rash Neuro: denies headaches, numbness, weakness [facility] Medical History Anemia (Resolved) 12/17/15 Anemia (Resolved) 07/27/08 Anxiety Anxiety (Chronic 02/27/15) Basal cell carcinoma of nose (Chronic) positive margins Cystic disease of kidney 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) left renal mass, presumed cyst, [place] [facility] [place] Deep vein thrombosis of lower extremity (Resolved) 05/18/13 Depressive disorder Depressive disorder (Chronic) Diabetes (Resolved) Diabetes mellitus Diverticula of colon (Chronic 04/22/17) DVT (deep venous thrombosis) Essential hypertension Essential hypertension (Resolved 06/17/13) Glaucoma Glaucoma (Chronic 07/27/08) Hyperlipidemia Hyperlipidemia (Chronic) Obesity (Chronic) Palpitations (Resolved) 05/05/13 Polyp in nasopharynx (Resolved) removed in 2002 in [place]; F/U w/ , cont. to be hoarse Thrombophlebitis of both lower extremities (Resolved) 05/18/13 Tinea corporis (Chronic 09/20/13) Venous stasis dermatitis of both lower extremities (Chronic 01/19/17) Surgical History (Updated 01/31/19 @ 09:20 by Hillary Taylor MD, [place]) Colonoscopy - IV Sedation (04/22/17) H/O local excision of skin lesion (Resolved 06/29/18) Excision of skin lesion of face (nose), Dr Gold, in [place] = basal cell carcinoma, positive margins H/O surgical procedure (Resolved) 09/21/02 History of excision of lesion (Resolved 09/09/18) Dr Gold, nose, re-excision - margins negative polypectomy (~2002) throat Family History Mother Diabetes Kidney disease single kidney Cancer Father Lung cancer Sister Heart disease CHF Kidney disease Cancer Brother Diabetes Heart disease CHF Maternal Grandfather Essential hypertension Heart disease Paternal Grandfather Cancer Maternal Grandmother Depression Heart disease Paternal Grandmother Heart disease Social History Smoking/Tobacco Use Status: Former Tobacco Use Quit Date: 09/21/94 Alcohol Intake: former Drug use: Never Substance use type: does not use Household members: family Communication Needs: None Do you need help understanding health information?: Rarely Pets and animals: No Sexually active: No Do you think of yourself as: straight/heterosexual Current gender identity: decline to answer What is your relationship status?: never How often do you talk on the phone with friends or family?: never How often do you get together with friends or relatives?: never How often do you attend nondenominational or mormon services?: decline to answer Do you belong to any clubs or organized social groups?: decline to answer Panel score (0-1 are the most socially isolated patients): 0 What type of physical activity do you participate in: weight lifting Duration: 15-30 minutes/day Frequency: 1-2 times per week Joan/Lutheran: Scientology Special joan needs: No Do you feel safe at home: Yes Do you feel safe in your relationship?: Yes Exam Narrative Exam Narrative: Constitutional: well and [id number], pleasant, conversing normally HENT: head atraumatic/normocephalic/normal inspection, mucous membranes moist Eyes: conjunctiva normal, sclera normal, pupils 3mm b/l Neck: no stridor, normal ROM, trachea midline Chest: normal inspection Resp: normal work of breathing, no respiratory distress Cardio: normal rate, normal rhythm Skin: warm, dry, normal color, no rash Neuro: alert, not altered, grossly non-focal, normal tone Ext: Chronic venous stasis skin changes bilateral lower legs, mild erythema left anterior lower leg just distal to left knee, faint 5 x 5 cm area of linear hyperpigmentation left anterior thigh with faint streak of hyperpigmentation over left anterior knee, area is nontender to palpation. No popliteal tenderness. No posterior calf tenderness to palpation bilaterally. Difficult to appreciate edema secondary to body habitus/skin changes, no pitting edema Psych: normal mood, normal affect, normal behavior Course Vital Signs Vital signs: Vital Signs Temperature 37.1 C 01/09/20 08:47 Pulse 81 01/09/20 08:47 Blood Pressure 130/110 H 01/09/20 08:47 Pulse Oximetry 95 01/09/20 08:47 Temperature 37.1 C 01/09/20 08:47 Temperature Source Temporal Artery Scan 01/09/20 08:47 Pulse 81 01/09/20 08:47 Respiratory Effort Non-Labored 01/09/20 08:50 Blood Pressure 130/110 H 01/09/20 08:47 Blood Pressure Position Sitting 01/09/20 08:47 Pulse Oximetry 95 01/09/20 08:47 Oxygen Delivery Method Room Air 01/09/20 08:47 Oxygen Flow Rate 0 01/09/20 08:47 Pain Level 1 01/09/20 08:47
--- NOTE | 2020-01-09 09:00 | DI.US_ITS ---
EXAM: US LOWER EXTREMITY VENOUS LT CLINICAL HISTORY: pain, skin changes, r/o DVT, h/o BILAT DVT 15 YEARS AGO TECHNIQUE: Ultrasound performed using standard protocol. COMPARISON: BILATERAL EXTREMITIES from 09/07/2012 FINDINGS: Duplex venous ultrasound left lower extremity was performed according to the usual protocol. Note is made of what appears to be old echogenic thrombus in the superficial venous system in branches of gr eater saphenous vein. No greater saphenous thrombus seen. There is mixed low/high echogenicity thrombus in the mid to distal femoral vein which may represent c hronic and/or acute thrombus. No other significant DVT identified from the common femoral vein to th e mid calf level. IMPRESSION: DVT in mid to distal femoral vein, this is of uncertain age but is likely to include acute thrombus. DATA REPOSITORY:
[2020-01-09 10:50] LABS: Abs Immature Grans 0.02 k/cumm (0.0-0.09); Absolute Eosinophil Count 0.18 k/cumm (0.0-0.7); Absolute Lymphocyte Count 1.35 k/cumm (1.2-3.4); Absolute Neutrophil Count 3.45 k/cumm (1.2-6.7); Eosinophils % 3.3; HCT 40.1 % (40.0-50.0); HGB 13.1 g/dL (13.5-17.5); Immature Grans % 0.4 %; Lymphocytes % 24.5; Mean Corp. HGB Concentration 32.7 g/dL (32.0-36.0); Mean Corpuscular Hemoglobin 30.8 pg (27.0-33.0); Mean Corpuscular Volume 94.1 fL (80-95); Mean Platelet Volume 9.3 fL (8.0-11.0); Monocytes % 9.1; Neutrophils % 62.7; Platelet Count 235 x1000/uL (130-400); RBC 4.26 m/cumm (4.50-6.00); RBC Distribution Width 13.5 % (11.8-14.1)
[2020-01-09 11:03] LABS: ALT 31 U/L (16-63); AST 22 U/L (15-37); Albumin 3.8 g/dL (3.4-5.0); Alkaline Phosphatase 51 U/L (46-116); Anion Gap 7.4 mmol/L (3-11); BUN 17 mg/dL (7-18); Bilirubin, Total 0.3 mg/dL (0.2-1.0); CO2 28.6 mmol/L (21.0-32.0); CREATININE 1.04 mg/dL (0.70-1.30); Calcium 9.1 mg/dL (8.5-10.1); Chloride 103 mmol/L (98-107); Glucose 94 mg/dL (74-106); Potassium 4.3 mmol/L (3.5-5.1); Sodium 139 mmol/L (136-145); Total Protein 7.8 g/dL (6.4-8.2)
[2020-01-09 11:04] LABS: Prothrombin Time 10.4 sec (9.3-11.0)
[2020-01-09 11:56] VITALS: BP 147/75; PULSE 75; RESP 16; TEMP 37.1; O2SAT 95
== END 2020-01-09 11:55 | disposition home or self-care (01) ==
PROVIDERS: Emergency Provider Student in an Organized Health Care Education/Training Program; PCP Family Medicine
DX: I82.402 Acute embolism and thrombosis of unspecified deep veins of left lower extremity (principal); L03.90 Cellulitis, unspecified; E11.9 Type 2 diabetes mellitus without complications; I10 Essential (primary) hypertension
CPT/HCPCS: 80053; 99284; 85025; 85610; 93971

== ENCOUNTER 2020-05-29 04:51 | Outpatient (CLI) | payer MEDICARE, SELFPAY ==
[2020-05-29 09:21] LABS: HGB 12.6 g/dL (13.5-17.5); MCH 30.6 pg (27.0-33.0); MCHC 33.2 % (32.0-36.0); MCV 92.2 fL (80-95); MPV 9.8 fL (8.0-11.0); Platelet Count 214 10^3/uL (130-400); RBC 4.12 10^6/uL (4.36-5.78); RDW 13.7 % (11.8-14.1); RDW-SD 46.2 fL; WBC 4.81 10^3/uL (4.4-10.8)
[2020-05-29 09:45] LABS: Hemoglobin A1C 5.6 % (<5.7)
[2020-05-29 10:41] LABS: ALT 32 U/L (16-63); AST 23 U/L (15-37); Albumin 3.8 g/dL (3.4-5.0); Alkaline Phosphatase 51 U/L (46-116); Anion Gap 11.5 mmol/L (3-11); BUN 13 mg/dL (7-18); Bilirubin, Total 0.3 mg/dL (0.2-1.0); CO2 28.5 mmol/L (21.0-32.0); CREATININE 1.02 mg/dL (0.70-1.30); Calcium 8.8 mg/dL (8.5-10.1); Chloride 100 mmol/L (98-107); Glucose 95 mg/dL (74-106); Potassium 4.3 mmol/L (3.5-5.1); Sodium 140 mmol/L (136-145); TSH (W/Ref FT4) 1.61 uIU/mL (0.36-3.74); Vitamin B12 419 pg/mL (193-986)
== END 2020-05-29 05:11 ==
PROVIDERS: PCP Family Medicine; Visit Provider Family Medicine
DX: E11.9 Type 2 diabetes mellitus without complications (principal); I10 Essential (primary) hypertension; F41.9 Anxiety disorder, unspecified; I82.409 Acute embolism and thrombosis of unspecified deep veins of unspecified lower extremity; M79.2 Neuralgia and neuritis, unspecified
CPT/HCPCS: 36415; 80053; 85027; 82607; 83036; 84443

== ENCOUNTER 2020-06-01 04:30 | Outpatient (CLI) | payer MEDICARE, SELFPAY ==
--- NOTE | 2020-06-01 13:30 | DI.US_ITS ---
EXAM: US EXTREMITY VENOUS BI CLINICAL HISTORY: ACUTE EMBOLISM THROMBOSIS OF BILAT LEGS, I82.401, I82.402,?DVT BILAT LEGS. TECHNIQUE: Bilateral lower extremity venous ultrasound performed using grayscale, color-flow, and sp ectral Doppler analysis. COMPARISON: US US LOWER EXTREMITY VENOUS LT from 01/09/2020 FINDINGS: Right lower extremity: Echogenic material is seen along the wall of the proximal right femoral vein. Measures 4.2 cm in length and is consistent with old thrombus. No acute thrombus is identified in t he deep or superficial veins. There is no Pearce's cyst. Left lower extremity: There is an echogenic nonocclusive thrombus extending from the proximal femoral vein through the distal femoral vein. Measures 12 cm in length. No acute thrombus is seen in the s uperficial or deep venous system. No Pearce's cyst is seen. The posterior tibial veins are patent. IMPRESSION: Right: Small area of old thrombus in the proximal right femoral vein. Left: 12 centimeter area of chronic appearing thrombus from the proximal through distal femoral vein. DATA REPOSITORY:
== END 2020-06-01 04:50 ==
PROVIDERS: PCP Family Medicine; Visit Provider Family Medicine
DX: I82.411 Acute embolism and thrombosis of right femoral vein (principal); I82.412 Acute embolism and thrombosis of left femoral vein
CPT/HCPCS: 93970

== ENCOUNTER → 2020-06-25 12:47 | Outpatient (BNVA) | payer MEDICARE, SELFPAY | PROVIDERS: PCP Family Medicine; Referring Provider Family Medicine; Visit Provider Psychiatry & Neurology Neurology | DX: E11.42 Type 2 diabetes mellitus with diabetic polyneuropathy (principal); M79.2 Neuralgia and neuritis, unspecified; I87.2 Venous insufficiency (chronic) (peripheral); I10 Essential (primary) hypertension | CPT/HCPCS: 99204; 99215 ==

== ENCOUNTER 2021-06-30 12:44 | Emergency (ER) | payer MEDICARE, SELFPAY ==
[2021-06-30 12:48] VITALS: BP 139/64; PULSE 66; RESP 18; TEMP 36.7; O2SAT 96
--- NOTE | 2021-06-30 13:00 | DI.US_ITS ---
Exam(s) US LOWER EXTREMITY VENOUS RT EXAM: US LOWER EXTREMITY VENOUS RT CLINICAL HISTORY: swelling, pain TECHNIQUE: Grayscale, color, and doppler imaging of the deep venous system of the lower extremity w as performed. COMPARISON: US US EXTREMITY VENOUS BI from 06/01/2020 US US EXTREMITY VENOUS BI from 06/01/2020 FINDINGS: There is no evidence of intraluminal thrombus and there is normal compression and augmentation demons trated within the deep veins at and below the knee level. However, there is DVT in the upper right thigh involving the right common femoral vein and continuous into the proximal right femoral vein, for total length measurement of 2 cm There is possibility that some of this may be chronic component. IMPRESSION: 1. Evidence of a DVT in the upper right lower extremity involving the right common femoral vein and proximal aspect of the right femoral vein. However, there may be a chronic component here, given the findings on the prior study of 06/01/2020. 2. I note that this patient also had DVT in the opposite-left leg on that prior study of 06/01/2020. the left lower extremity was not scanned today. DATA REPOSITORY:
[2021-06-30 13:54] LABS: Abs Immature Grans 0.03 10^3/uL (0.0-0.06); Absolute Basophil Count 0.01 10^3/uL (0.0-0.2); Absolute Eosinophil Count 0.32 10^3/uL (0.0-0.7); Absolute Lymphocyte Count 1.27 10^3/uL (1.2-3.4); Absolute Monocyte Count 0.48 10^3/uL (0.1-0.8); Absolute Neutrophil Count 3.21 10^3/uL (1.2-6.7); Basophils % 0.2; HCT 37.4 % (40.0-50.0); HGB 12.2 g/dL (13.5-17.5); Immature Grans % 0.6; Lymphocytes % 23.9; MCH 30.7 pg (27.0-33.0); MCHC 32.6 % (32.0-36.0); MPV 9.8 fL (8.0-11.0); Neutrophils % 60.3; Nucleated RBC 0 %; Platelet Count 208 10^3/uL (130-400); RBC 3.98 10^6/uL (4.36-5.78); RDW 13.6 % (11.8-14.1); RDW-SD 46.6 fL; WBC 5.32 10^3/uL (4.4-10.8)
[2021-06-30 14:00] LABS: Anion Gap 5.9 mmol/L (3-11); BUN 14 mg/dL (7-18); CO2 29.1 mmol/L (21.0-32.0); CREATININE 1.1 mg/dL (0.70-1.30); Calcium 8.9 mg/dL (8.5-10.1); Chloride 104 mmol/L (98-107); Glucose 86 mg/dL (74-106); Potassium 4.1 mmol/L (3.5-5.1); Sodium 139 mmol/L (136-145)
--- NOTE | 2021-06-30 14:02 | DI.RAD_ITS ---
Exam(s) XR TIB/FIB RT EXAM: XR TIB/FIB RT CLINICAL HISTORY: swelling, ulcer. TECHNIQUE: 2D digital imaging was performed. COMPARISON: No exams were available for comparison FINDINGS: There is no evidence of fracture of the tibia and fibula. Significant osteoarthritic degenerative ch anges are noted in the right knee. In addition, there appears to be diffuse the soft tissue swelling in the calf. On the AP view there is also suggestion of a possible skin ulcer on the lateral aspect of the calf at the junction of the mid and lower thirds. Please see separate ultrasound report. IMPRESSION: DATA REPOSITORY: RADIATION DOSE DELIVERED:
[2021-06-30 14:23] LABS: D-Dimer 453 ng/mlFEU (<500)
--- NOTE | 2021-06-30 14:55 | ED.GENADUL_ITS ---
Discharge Plan Disposition Patient Disposition: AGAINST MEDICAL ADVICE Discharge Details Clinical Impression: DVT (deep venous thrombosis), Cellulitis of right leg Primary Care Provider: Hillary Taylor ED Provider: Jamie Thomas Home Meds and New Rx's Prescriptions: New doxycycline hyclate 100 mg tablet 100 mg PO BID Qty: 14 RF: 0 No Action cyanocobalamin (vitamin B-12) [Vitamin B-12] 1,000 MCG tablet 2.5 tab PO DAILY RF: 0 ascorbic acid (vitamin C) [Vitamin C] 500 MG tablet 2 tab PO DAILY RF: 0 cholecalciferol (vitamin D3) 5,000 UNIT capsule 5,000 unit PO DAILY RF: 0 aspirin [Aspir-81] 81 MG tablet,delayed release (DR/EC) 81 mg PO DAILY Qty: 1 RF: 0 Eliquis 5 mg tablet 5 mg PO BID Qty: 180 RF: 4 gabapentin 100 mg capsule 100 mg PO TID Qty: 90 RF: 5 venlafaxine [Effexor XR] 75 mg capsule,extended release 24hr 75 mg PO DAILY Qty: 90 RF: 4 Discharge Instructions Instructions: Cellulitis (ED), Against Medical Advice (ED) Additional Instructions: It was recommended that you be admitted to the hospital for treatment today. You have refuses recommended treatment and or leaving AGAINST MEDICAL ADVICE. Please increase your dosing of Eliquis to 10 mg twice a day. Please take antibiotic as prescribed. Please follow-up with your primary care physician as soon as possible this week. Please return to the emergency department at any time should you desire treatment as recommended or for any worsening or new concerning symptoms. Referrals: Hillary Taylor MD, [place] [Primary Care Provider] - Discharge Data Discharge Date/Time-TO BE ENTERED AT DEPARTURE: 06/30/21 15:29 Medical Decision Making 66-year-old male with chronic venous stasis of his lower extremities and chronic ulcer right lower extremity, diabetes, here with increased redness and swelling of his right lower extremity over the past few days. X-ray of the tib-fib right reviewed and interpreted by me: No soft tissue air, no signs of osteomyelitis. Right lower extremity ultrasound interpreted by radiology: Small DVT noted. Patient was recently started on apixaban and notes that he has been taking 5mg BID as prescribed. Patient is a poor historian and not sure why he was started on Eliquis. He denies history of DVT in the past. On review of his outpatient medical record there is note of DVT in the past. Given breakthrough DVT on Eliquis, I recommend admission for Lovenox. Patient is refusing recommended treatment. He provided informed refusal of recommended Lovenox and admission. He is agreeable to increasing dose of Eliquis and to close follow-up with PCP. I recommended that he increase Eliquis to 10 mg twice daily. He has a follow-up appointment on Thursday with Dr. Taylor Given increased warmth and drainage from wounds, consider superimposed cellulitis. I will treat with doxycycline. HPI General Mode of arrival: ambulatory . Date/Time Provider Initiated Documentation: 06/30/21 12:54 . Limitations to Documentation: no limitations . Information obtained by: patient . HPI Narrative: 66-year-old male with chronic venous stasis of his lower extremities and chronic ulcer right lower extremity, diabetes, here with chief complaint of inflammation of right lower extremity for the past 1 week. Patient notes increased redness and swelling of his right lower extremity. Symptoms are moderate. No modifiers. Patient states he has been compliant with Eliquis as prescribed. He denies associated fever. Patient is somewhat of a poor historian. Related Data Home Medications Medication Instructions Recorded Confirmed cyanocobalamin (vitamin B-12) 2.5 tab PO DAILY 10/16/14 07/02/21 [Vitamin B-12] ascorbic acid (vitamin C) [Vitamin 2 tab PO DAILY 12/17/15 07/02/21 C] cholecalciferol (vitamin D3) 5,000 unit PO DAILY 01/19/17 07/02/21 aspirin [Aspir-81] 81 mg PO DAILY #1 tab-cap 04/20/17 07/02/21 apixaban 5 mg tablet 5 mg PO BID #180 tab 02/21/21 07/02/21 gabapentin 100 mg capsule 100 mg PO TID #90 cap 05/27/21 07/02/21 venlafaxine 75 mg capsule,extended 75 mg PO DAILY #90 cap 05/27/21 07/02/21 release 24 hr doxycycline hyclate 100 mg PO BID #14 tab 06/30/21 07/02/21 Previous Rx's Medication Instructions Recorded apixaban 5 mg tablet 5 mg PO BID #180 tab 06/03/21 gabapentin 100 mg capsule 100 mg PO TID #90 cap 05/27/21 venlafaxine 75 mg capsule,extended 75 mg PO DAILY #90 cap 05/27/21 release 24 hr doxycycline hyclate 100 mg PO BID #14 tab 06/30/21 Allergies Allergy/AdvReac Type Severity Reaction Status Date / Time amoxicillin Allergy Intermediate rash Verified 07/02/21 10:57 General Stated Complaint: Cellulitis LUANN: 4 Review of Systems Constitutional Constitutional: Denies fever(s) Cardiovascular Cardiovascular: Denies chest pain and Denies dyspnea Respiratory Respiratory: Denies cough and Denies dyspnea Integumentary/Breasts Skin/Breast: Reports as per [facility] Medical History (Updated 07/02/21 @ 11:37 by Hillary Taylor MD, [place]) Anemia 12/17/15 Anemia 07/27/08 Anxiety Anxiety (02/27/15) Basal cell carcinoma of nose positive margins 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 to be hoarse Thrombophlebitis of both lower extremities 05/18/13 Tinea corporis (09/20/13) Venous stasis dermatitis of both lower extremities (01/19/17) Surgical History Colonoscopy - IV Sedation (04/22/17) H/O local excision of skin lesion (06/29/18) Excision of skin lesion of face (nose), Dr Gold, in [place] = basal cell carcinoma, positive margins H/O surgical procedure 09/21/02 History of excision of lesion (09/09/18) Dr Gold, nose, re-excision - margins negative polypectomy (~2002) throat Family History Mother Diabetes Kidney disease single kidney Cancer Father Lung cancer Sister Heart disease CHF Kidney disease Cancer Brother Diabetes Heart disease CHF Maternal Grandfather Essential hypertension Heart disease Paternal Grandfather Cancer Maternal Grandmother Depression Heart disease Paternal Grandmother Heart disease Social History (Updated 07/02/21 @ 17:51 by Negin Torres) Smoking/Tobacco Use Status: Former Tobacco Use (Quit in 1994) Quit Date: 09/21/94 Second Hand Exposure: Yes Smoking risk assessment performed?: Yes Alcohol Intake: former Drug use: Never Substance use type: does not use Counseling given: No Counseling provided: none Household members: family and other Details: sister Housing: house Communication Needs: None Do you need help understanding health information?: Rarely Pets and animals: No Sexually active: No Current gender identity: male What is your relationship status?: never How often do you talk on the phone with friends or family?: never How often do you get together with friends or relatives?: never How often do you attend anabaptism or orthodoxy services?: decline to answer Do you belong to any clubs or organized social groups?: decline to answer Panel score (0-1 are the most socially isolated patients): 0 What type of physical activity do you participate in: walking Frequency: 1-2 times per week Joan/Methodist: Judaism Special joan needs: No Do you feel safe at home: Yes Do you feel safe in your relationship?: Yes Exam Const General: cooperative and no acute distress HENMT Mouth: moist mucous membranes Eyes Conjunctivae: normal conjunctivae Sclera: normal sclerae Neck Neck: trachea midline and supple Resp Auscultation: clear to auscultation bilaterally, no rales, no rhonchi and no wheezes Cardio Rate: regular rate and not tachycardic Rhythm: regular rhythm GI Palpation: soft, not rigid and nontender Skin Rashes: rashes noted (chronic wound w/ acute inflammation rt flanagan minimal discharge,no fluctuance) Neuro General: patient alert, patient awake, patient oriented x3 and tone normal Extrem Right lower extremity: lower leg Details: tenderness, localized swelling and warmth; no crepitus and foot Details: vascular exam Details: dorsalis pedis pulse present Psych Appearance: grossly normal Mental Status: mental status grossly normal Course Vital Signs Vital signs: Vital Signs Temperature 36.7 C 06/30/21 12:48 Pulse 66 06/30/21 12:48 Respiratory Rate 18 06/30/21 12:48 Blood Pressure 139/64 06/30/21 12:48 Pulse Oximetry 96 06/30/21 12:48 Temperature 36.7 C 06/30/21 12:48 Temperature Source Temporal Artery Scan 06/30/21 12:48 Pulse 66 06/30/21 12:48 Respiratory Rate 18 06/30/21 12:48 Respiratory Effort Non-Labored 06/30/21 12:54 Blood Pressure 139/64 06/30/21 12:48 Blood Pressure Position Sitting 06/30/21 12:48 Pulse Oximetry 96 06/30/21 12:48 Oxygen Delivery Method Room Air 06/30/21 12:48 Oxygen Flow Rate 0 06/30/21 12:48 Pain Level 0 06/30/21 12:48 Lab/Test Results Lab/Test Results: Laboratory Tests Range/Units 06/30/21 06/30/21 06/30/21 13:45 13:45 13:45 WBC (4.4-10.8) 10^3/uL 5.32 RBC (4.36-5.78) 10^6/uL 3.98 L Hgb (13.5-17.5) g/dL 12.2 L Hct (40.0-50.0) % 37.4 L MCV (80-95) fL 94.0 MCH (27.0-33.0) pg 30.7 MCHC (32.0-36.0) % 32.6 RDW (11.8-14.1) % 13.6 Plt Count (130-400) 10^3/uL 208 MPV (8.0-11.0) fL 9.8 Immature Gran % 0.6 Neutrophils % 60.3 Lymphocytes % 23.9 Monocytes % 9.0 Eosinophils % 6.0 Basophils % 0.2 Nucleated RBC % % 0 Absolute Neutrophils (1.2-6.7) 10^3/uL 3.21 Absolute Lymphocytes (1.2-3.4) 10^3/uL 1.27 Absolute Monocytes (0.1-0.8) 10^3/uL 0.48 Absolute Eosinophils (0.0-0.7) 10^3/uL 0.32 Absolute Basophils (0.0-0.2) 10^3/uL 0.01 D-Dimer (<500) ng/mlFEU 453 Sodium (136-145) mmol/L 139 Potassium (3.5-5.1) mmol/L 4.1 Chloride (98-107) mmol/L 104 Carbon Dioxide (21.0-32.0) mmol/L 29.1 Anion Gap (3-11) mmol/L 5.9 BUN (7-18) mg/dL 14 Creatinine (0.70-1.30) mg/dL 1.1 Estimated GFR/1.73 m2 (mL/min/1.73m2) >= 60.00 Glucose (74-106) mg/dL 86 Calcium (8.5-10.1) mg/dL 8.9
--- NOTE | 2021-06-30 15:14 | DI.VRAD_ITS ---
PROCEDURE INFORMATION: Exam: XR Right Tibia and Fibula Exam date and time: 06/30/2021 1:15 PM Age: 66 years old Clinical indication: Swelling, leg or foot; Patient HX: Swelling, ulcer TECHNIQUE: Imaging protocol: XR Right tibia and fibula. Views: 2 views. Total images: 3 COMPARISON: US EXTREMITY VENOUS BI 06/01/2020 1:53 PM FINDINGS: Bones/joints: No acute fracture or malalignment. Soft tissues: There is soft tissue swelling about the lower leg. IMPRESSION: No acute fracture or malalignment. Dictated and Authenticated by: Peter Burciaga MD. Ordering:TRISHA Ayala MD
[2021-06-30 15:16] VITALS: BP 142/65; PULSE 82; RESP 17; TEMP 36.4; O2SAT 95
--- NOTE | 2021-06-30 15:22 | DI.VRAD_ITS ---
PROCEDURE INFORMATION: Exam: US Duplex Right Lower Extremity Veins, Limited Exam date and time: 06/30/2021 1:15 PM Age: 66 years old Clinical indication: Pain; Leg, lower; Right TECHNIQUE: Imaging protocol: Real-time Duplex ultrasound of the Right Lower Extremity with 2-D gama scale, color Doppler flow and spectral waveform analysis with image documentation. Limited exam was focused on the right lower extremity veins. Total images: 32 COMPARISON: US EXTREMITY VENOUS BI 06/01/2020 1:53 PM FINDINGS: Right deep veins: The common femoral vein is noncompressible. There is echogenic thrombus in the common femoral vein. The superficial femoral vein is noncompressible proximally. The popliteal vein is compressible. There is color Doppler flow in the common, superficial femoral and popliteal veins. Right superficial veins: Unremarkable. Saphenofemoral junction is patent without thrombus. Soft tissues: Unremarkable. IMPRESSION: Redemonstration of common and superficial femoral deep vein thrombi. Dictated and Authenticated by: Peter Burciaga MD. Ordering:TRISHA Ayala MD
[2021-06-30] MEDS: Doxycycline Hyclate 100 MG CAP PO (15:24)
== END 2021-06-30 15:29 | disposition left against medical advice (07) ==
PROVIDERS: Emergency Provider Student in an Organized Health Care Education/Training Program; PCP Family Medicine
DX: I82.491 Acute embolism and thrombosis of other specified deep vein of right lower extremity (principal); E11.622 Type 2 diabetes mellitus with other skin ulcer; L97.819 Non-pressure chronic ulcer of other part of right lower leg with unspecified severity; L03.115 Cellulitis of right lower limb; Z79.01 Long term (current) use of anticoagulants; Z53.29 Procedure and treatment not carried out because of patient's decision for other reasons
CPT/HCPCS: 36415; 80048; 99284; 73590; 85025; 85379; 93971

== ENCOUNTER 2022-03-31 03:03 | Outpatient (CLI) | payer MEDICARE, SELFPAY ==
[2022-03-31 12:29] LABS: HGB 12.6 g/dL (13.5-17.5); MCH 30.7 pg (27.0-33.0); MCHC 33.2 % (32.0-36.0); MCV 93 fL (80-95); MPV 10.4 fL (8.0-11.0); Platelet Count 228 10^3/uL (130-400); RDW 13.7 % (11.8-14.1); RDW-SD 46.7 fL
[2022-03-31 13:01] LABS: Hemoglobin A1C 5.7 % (<5.7)
[2022-03-31 13:27] LABS: ALT 33 U/L (16-63); AST 22 U/L (15-37); Albumin 3.9 g/dL (3.4-5.0); Alkaline Phosphatase 43 U/L (46-116); Anion Gap 11.4 mmol/L (3-11); BUN 17 mg/dL (7-18); Bilirubin, Total 0.3 mg/dL (0.2-1.0); CO2 24.6 mmol/L (21.0-32.0); CREATININE 1.2 mg/dL (0.70-1.30); Calcium 9.6 mg/dL (8.5-10.1); Calculated LDL 62 mg/dL (<100); Chloride 103 mmol/L (98-107); Cholesterol 165 mg/dL (<200); Glucose 92 mg/dL (74-106); HDL Cholesterol 36 mg/dL (40-60); Potassium 3.9 mmol/L (3.5-5.1); Sodium 139 mmol/L (136-145); Total Protein 7.7 g/dL (6.4-8.2); Triglyceride 339 mg/dL (<150)
== END 2022-03-31 03:04 | disposition home or self-care (01) ==
LOC: LOS 03:03
PROVIDERS: PCP Family Medicine; Visit Provider Family Medicine
DX: G62.9 Polyneuropathy, unspecified; L03.115 Cellulitis of right lower limb; E11.9 Type 2 diabetes mellitus without complications; E78.5 Hyperlipidemia, unspecified; I10 Essential (primary) hypertension; I82.491 Acute embolism and thrombosis of other specified deep vein of right lower extremity
CPT/HCPCS: 36415; 80053; 80061; 85027; 83036

== ENCOUNTER 2023-04-27 10:40 | Outpatient (CLI) | payer MEDICARE, SELFPAY ==
[2023-04-27 12:30] LABS: HCT 38.2 % (40.0-50.0); HGB 12.5 g/dL (13.5-17.5); MCH 30.8 pg (27.0-33.0); MCHC 32.7 % (32.0-36.0); MCV 94 fL (80-95); Platelet Count 236 10^3/uL (130-400); RBC 4.06 10^6/uL (4.36-5.78); RDW 13.3 % (11.8-14.1); RDW-SD 45.9 fL; WBC 4.85 10^3/uL (4.4-10.8)
[2023-04-27 12:45] LABS: ALT 28 U/L (16-63); AST 24 U/L (15-37); Albumin 3.8 g/dL (3.4-5.0); Alkaline Phosphatase 47 U/L (46-116); Anion Gap 9.4 mmol/L (3-11); BUN 19 mg/dL (7-18); Bilirubin, Total 0.3 mg/dL (0.2-1.0); CO2 27.6 mmol/L (21.0-32.0); CREATININE 1.3 mg/dL (0.70-1.30); Calcium 9.3 mg/dL (8.5-10.1); Chloride 104 mmol/L (98-107); Estimated GFR 59.47 (mL/min/1.73m2); Glucose 94 mg/dL (74-106); Potassium 4.5 mmol/L (3.5-5.1); Sodium 141 mmol/L (136-145); Total Protein 7.6 g/dL (6.4-8.2)
[2023-04-27 12:47] LABS: Hemoglobin A1C 5.5 % (<5.7)
[2023-04-27 22:48] LABS: PSA, Diagnostic 2.4 ng/mL (<=4.5)
== END 2023-04-27 10:41 | disposition home or self-care (01) ==
LOC: LOS 10:40
PROVIDERS: PCP Family Medicine; Referring Provider Family Medicine; Visit Provider Family Medicine
DX: E11.9 Type 2 diabetes mellitus without complications (principal); I10 Essential (primary) hypertension; N40.0 Benign prostatic hyperplasia without lower urinary tract symptoms; Q61.9 Cystic kidney disease, unspecified
CPT/HCPCS: 36415; 80053; 85027; 83036; 84153

== ENCOUNTER 2024-08-26 14:54 | Outpatient (CLI) | payer MEDICARE, SELFPAY ==
--- NOTE | 2024-08-26 09:45 | DI.RAD_ITS ---
Exam(s) XR CHEST 2V PA LATERAL EXAM: XR CHEST 2V PA LATERAL CLINICAL HISTORY: evaluate pathology r05.9 cough TECHNIQUE: 2D digital imaging was performed. Two views. COMPARISON: No exams were available for comparison FINDINGS: HEART: Normal size. Aorta: Not dilated. PULMONARY VASCULATURE: Normal. MEDIASTINUM: Unremarkable. LUNGS: Clear. PLEURAL SPACE: No pleural effusion or pneumothorax. BONE:Unremarkable for age. SOFT TISSUES: Unremarkable. IMPRESSION: No acute abnormality. DATA REPOSITORY: RADIATION DOSE DELIVERED:
== END 2024-08-26 15:14 ==
LOC: DI 14:56
PROVIDERS: PCP Family Medicine; Visit Provider Nurse Practitioner Family
DX: R05.9 Cough, unspecified (principal)
CPT/HCPCS: 71046

== ENCOUNTER 2024-08-26 15:21 | Outpatient (CLI) | payer MEDICARE, SELFPAY ==
[2024-08-26 10:29] LABS: HCT 39.2 % (40.0-50.0); MCH 30.6 pg (27.0-33.0); MCHC 33.2 % (32.0-36.0); MCV 92 fL (80-95); MPV 9.4 fL (8.0-11.0); Platelet Count 229 10^3/uL (130-400); RBC 4.25 10^6/uL (4.36-5.78); RDW 13.6 % (11.8-14.1); RDW-SD 46.5 fL; WBC 6.07 10^3/uL (4.4-10.8)
[2024-08-26 11:32] LABS: ALT 29 U/L (16-63); AST 31 U/L (15-37); Alkaline Phosphatase 52 U/L (46-116); Anion Gap 10.1 mmol/L (3-11); BUN 21 mg/dL (7-18); Bilirubin, Total 0.29 mg/dL (0.2-1.0); CO2 25.9 mmol/L (21.0-32.0); CREATININE 1.3 mg/dL (0.70-1.30); Calcium 9.3 mg/dL (8.5-10.1); Calculated LDL 56 mg/dL (<100); Chloride 104 mmol/L (98-107); Cholesterol 158 mg/dL (<200); Glucose 97 mg/dL (74-106); HDL Cholesterol 37 mg/dL (40-60); Potassium 4.4 mmol/L (3.5-5.1); Sodium 140 mmol/L (136-145); Total Protein 8.1 g/dL (6.4-8.2); Triglyceride 327 mg/dL (<150); Vitamin B12 504 pg/mL (193-986)
[2024-08-26 11:50] LABS: NT-proBNP 54 pg/mL (<300)
[2024-08-26 18:42] LABS: PSA, Diagnostic 5.1 ng/mL (<=6.5)
== END 2024-08-26 15:22 | disposition home or self-care (01) ==
LOC: LBO 15:21
PROVIDERS: PCP Family Medicine; Visit Provider Nurse Practitioner Family
DX: Z79.01 Long term (current) use of anticoagulants (principal); I10 Essential (primary) hypertension; I87.2 Venous insufficiency (chronic) (peripheral); G62.9 Polyneuropathy, unspecified; N40.0 Benign prostatic hyperplasia without lower urinary tract symptoms; E55.9 Vitamin D deficiency, unspecified; R06.02 Shortness of breath
CPT/HCPCS: 36415; 80053; 80061; 82306; 85027; 82607; 83880; 84153

== ENCOUNTER → 2025-02-14 10:18 | Outpatient (BNVA) | payer MEDICARE, SELFPAY | PROVIDERS: PCP Family Medicine; Referring Provider Family Medicine; Visit Provider Nurse Practitioner Gerontology | DX: N47.1 Phimosis (principal); I10 Essential (primary) hypertension | CPT/HCPCS: 99214 ==

== ENCOUNTER 2025-06-02 03:32 | Outpatient (CLI) | payer MEDICARE, SELFPAY ==
[2025-06-02 14:32] LABS: HCT 37.9 % (40.0-50.0); HGB 12.3 g/dL (13.5-17.5); MCH 30.4 pg (27.0-33.0); MCHC 32.5 % (32.0-36.0); MCV 94 fL (80-95); MPV 10.2 fL (8.0-11.0); Platelet Count 234 10^3/uL (130-400); RBC 4.04 10^6/uL (4.36-5.78); RDW 13.4 % (11.8-14.1); RDW-SD 46.4 fL; WBC 5.01 10^3/uL (4.4-10.8)
[2025-06-02 15:39] LABS: ALT 28 U/L (16-63); AST 16 U/L (15-37); Albumin 3.7 g/dL (3.4-5.0); Alkaline Phosphatase 42 U/L (46-116); Anion Gap 8.9 mmol/L (3-11); BUN 17 mg/dL (7-18); Bilirubin, Total 0.3 mg/dL (0.2-1.0); CO2 29.1 mmol/L (21.0-32.0); Calcium 9.4 mg/dL (8.5-10.1); Chloride 102 mmol/L (98-107); Estimated GFR 91.31 (mL/min/1.73m2); Glucose 97 mg/dL (74-106); Potassium 4.3 mmol/L (3.5-5.1); Sodium 140 mmol/L (136-145); Total Protein 7.5 g/dL (6.4-8.2); Vitamin B12 444 pg/mL (193-986)
[2025-06-02 16:50] LABS: Hemoglobin A1C 5.7 % (<5.7)
[2025-06-05 13:53] LABS: Hepatitis C Ab w Rflx HCV PCR Negative (Negative)
== END 2025-06-02 03:33 | disposition home or self-care (01) ==
PROVIDERS: PCP Family Medicine; Visit Provider Family Medicine
DX: Z11.59 Encounter for screening for other viral diseases (principal); M79.2 Neuralgia and neuritis, unspecified; E11.9 Type 2 diabetes mellitus without complications; I10 Essential (primary) hypertension; Z79.01 Long term (current) use of anticoagulants
CPT/HCPCS: 36415; 80053; 85027; 86803; 82607; 83036